=== PATIENT | male | born 1965 | race Caucasian/White ===

== ENCOUNTER 2021-08-17 19:51 | Emergency (ER) | payer MEDICARE, MEDICAID, SELFPAY ==
--- NOTE | 2021-08-17 20:03 | ED.ALCOHOL ---
HPI - Alcohol General Stated Complaint: ETOH Time Seen by Provider: 08/17/21 20:03 Source: patient and EMS Mode of arrival: EMS Limitations: no limitations History of Present Illness HPI narrative: 56-year-old male came in by ambulance after [address] trunk. Patient admitted to drinking plenty of alcohol last night, patient was found in the street by EMS and brought to the emergency department, patient stated that he is not homeless, patient declined SI/HI/hallucination. Review of Systems Review of Systems: All other systems are reviewed and are negative Constitutional: Reports as per HPI and Reports no additional constitutional complaints Eyes: Reports as per HPI and Reports no additional eye complaints Reports system reviewed and no additional complaints, except as documented Cardiovascular: Reports as per HPI and Reports no additional cardiovascular complaints Respiratory: Reports as per HPI and Reports no additional respiratory complaints Gastrointestinal: Reports as per HPI and Reports no additional gastrointestinal complaints Genitourinary: Reports no additional female genitourinary complaints Musculoskeletal: Reports no additional musculoskeletal complaints Skin/Breast: Reports system reviewed and no additional complaints, except as docu Psychiatric: Reports no additional psychiatric complaints Endocrine: Reports no additional endocrine complaints Hematologic/Lymphatic: Reports no additional hematologic/lymphatic complaints Allergic/Immunologic: Reports no additional allergic/immunologic complaints Reports system reviewed and no additional complaints, except as documented and Reports Abnormal speech present Physical Exam Vital Signs: Vital Signs: Vital signs have been reviewed as appeared to be correct. Blood pressure normal. Heart rate normal. Respiration rate normal. Temperature normal. Oxygen saturation normal. Appearance: Alert. Oriented X3. No acute distress. Disheveled Head: Normal external exam. Normocephalic. Atraumatic. No Collins signs noted. No raccoon eyes noted Eyes: PERRLA. EOMI. Conjunctiva and sclera normal. Eyelids normal. ENT: TM's Normal. Pharynx normal. Uvula midline. Moist mucous membranes. No trismus noted. No drooling noted. No muffled voice noted. Neck: Normal inspection. Neck supple. FROM. No adenopathy. Thyroid Normal. No meningeal signs. No neck mass noted. CVS: Normal heart rate and rhythm. Heart sound normal. No murmurs noted. Pulses normal throughout. Respiratory: No respiratory distress. Painless inspiration. Breath sounds normal. No wheezes/rales/rhonchi noted. Chest nontender. No accessory muscle usage noted or decreased air movement noted. Abdomen: Soft and nontender. Bowel sounds normal in all 4 quadrants. No distention noted. No organomegaly noted. No visible injury noted. Back: No CVA tenderness. Full range of motion noted. Skin: Skin warm and dry. Normal skin color. Normal skin turgor. No rashes/lesions/lacerations noted. Extremities: No lower extremity edema. Extremities exhibit normal range of motion. Extremities nontender. Neuro: Oriented X 3. Cranial nerve exam: II-XII are grossly intact No motor deficit. No sensory deficit. Reflexes normal. Course Course Course Narrative: Assessment and plan. 56-year-old male came in drunk limited exam in evaluation due to a total severe intoxication, will re-evaluate when patient is more sober. Discharge Plan Discharge Clinical Impression: Alcohol intoxication Instructions: Abuse of Alcohol (ED)
[2021-08-17 20:06] VITALS: BP 128/71; PULSE 99; RESP 16; O2SAT 100; BMI 26.9
[2021-08-17 22:00] VITALS: RESP 16
--- NOTE | 2021-08-17 22:00 | PC.NURSE ---
THIS NURSE ASSISTED PT TO BATHROOM. GAIT STEADY. NO C/O SOB, CHEST PAIN OR HEADACHE WHILE AMBULATING. NO MUSCLE TREMORS NOTED AT THIS TIME. PT BACK IN RECLINER IN 22 FER[address]. FRESH WARM BLANKET GIVEN TO PT. AWARE.
--- NOTE | 2021-08-17 23:47 | PC.NURSE ---
PT SLEEPING COMFORTABLY IN 22 [address]. NO DISTRESS NOTED AT THIS TIME. RESPIRATIONS EVEN AND UNLABORED. NO SWEATING, MUSCLE TREMORS OR AGITATION NOTED. MD WRIGHT
== END 2021-08-18 02:10 | disposition home or self-care (01) ==
PROVIDERS: Emergency Provider Emergency Medicine
DX: F10.120 Alcohol abuse with intoxication, uncomplicated (principal); Y90.9 Presence of alcohol in blood, level not specified; F43.29 Adjustment disorder with other symptoms; F32.A Depression, unspecified; F17.200 Nicotine dependence, unspecified, uncomplicated
CPT/HCPCS: 99284

== ENCOUNTER 2021-08-28 11:03 | Inpatient (IN) | payer MEDICARE, MEDICAID, SELFPAY ==
[2021-08-28 11:40] VITALS: BP 171/109; PULSE 100; RESP 16; TEMP 37.5; O2SAT 96; BMI 28.4
[2021-08-28 12:11] LABS: Basophils Percent Auto 0.2 % (0-2); Eosinophils Percent Auto 0.5 % (0-4); Hematocrit 39.1 % (42.0-52.0); Hemoglobin 13.6 g/dl (14.0-18.0); Imm Gran Abs Auto 0.02 X10*3/uL (0.00-0.03); Imm Gran Pct Auto 0.4 % (0.0-0.4); Lymphocytes Absolute Auto 0.7 X10*3/uL (1.2-4.9); MANUAL DIFF FLAG SCAN; Mean Corpuscular HGB Conc 34.8 g/dl (31.0-36.0); Mean Corpuscular Hemoglobin 34.4 pg (27.0-33.0); Monocytes Absolute Auto 0.3 X10*3/uL (0.1-1.2); Monocytes Percent Auto 5.1 % (2-11); Neutrophils Absolute Auto 4.5 x10*3/uL (2.0-8.3); Neutrophils Percent Auto 81.8 % (45-73); PLT CLUMP 1; Red Blood Count 3.95 X10*6/uL (4.60-5.80); SCAN SMEAR FLAG 1
[2021-08-28 12:20] LABS: Ethanol 45 mg/dL
[2021-08-28 12:23] LABS: Alanine Aminotransferase 41 U/L (0-40); Alkaline Phosphatase 75 U/L (39-117); Anion Gap 15 (12-20); Aspartate Amino Transferase 60 U/L (5-37); Bilirubin Total 0.8 mg/dL (0.0-1.0); Blood Urea Nitrogen 10 mg/dL (9-16); Calcium 8.8 mg/dL (8.4-10.2); Carbon Dioxide 24 mmol/L (22-29); Chloride 106 mmol/L (96-108); Creatinine Clr Calc Pharmacy 126.7; Estimated Glomerular Filt Rate > 60; Glucose Random 128 mg/dL (60-115); Lipase 8 U/L (8-78); Potassium 3.5 mmol/L (3.3-5.1); Sodium 141 mmol/L (135-145); Total Protein 6.9 g/dL (6.5-8.0)
[2021-08-28 12:29] LABS: Platelet Count 64 X10*3/uL (160-400); White Blood Count 5.5 X10*3/uL (4.8-10.8)
[2021-08-28 12:30] LABS: COVID-19 Test Negative (Negative)
[2021-08-28 12:30] LABS: SLIDE REVIEW VERIFIED
[2021-08-28 12:42] VITALS: BP 171/109; PULSE 100
[2021-08-28] MEDS: Acetaminophen 325 MG TABLET 975 MG PO (12:42)
[2021-08-28] MEDS: cloNIDine HCL 0.1 MG TABLET PO (12:42)
[2021-08-28] MEDS: LORazepam 1 MG TABLET PO (12:42)
[2021-08-28 13:15] LABS: Appearance Urine CLEAR; Color Urine YELLOW; Glucose Urine UA NEG (NEG); Leukocyte Esterase Urine NEG (NEG); Nitrite Urine NEG (NEG); PH 6.5 (5.0-8.0); Urine Blood NEG (NEG); Urine Ketones NEG (NEG); Urine Protein NEG (NEG-TRACE)
[2021-08-28 13:46] LABS: RBC Urine 0 /HPF (0); Sperm Urine NOTED; WBC Urine 0-2 /HPF (0-4)
[2021-08-28 13:51] VITALS: BP 129/59; PULSE 104; RESP 16; TEMP 37.1; O2SAT 97
[2021-08-28] MEDS: LORazepam 1 MG TABLET 2 MG PO ×2 (14:22→16:10)
--- NOTE | 2021-08-28 15:23 | ED.PSYCH ---
HPI - Psych General Chief Complaint: Psychiatric Symptoms Stated Complaint: Crisis Time Seen by Provider: 08/28/21 11:27 Source: patient Mode of arrival: ambulatory Limitations: no limitations History of Present Illness HPI Narrative: 56-year-old male who presents emergency department for evaluation of suicidal ideation, depression and requesting evaluation for alcohol detox. Patient states that he is homeless. He states that he is very depressed and has been thinking of killing himself. He states he just does not want to live anymore. He does not have a specific plan. He denies being homicidal. Patient states that he is drinking 6-8 nips of whiskey per day. His last drink was this morning at around 8:00 a.m.. He denied fever, chills, chest pain, shortness of breath, nausea, vomiting, abdominal pain, changes bowel movements, change in his urine. Related Data Previous Rx's Medication Instructions Recorded furosemide 20 mg tablet 20 mg PO DAILY #3 tab 09/02/21 Allergies Allergy/AdvReac Type Severity Reaction Status Date / Time No Known Allergies Allergy Verified 08/31/21 20:16 Review of Systems Review of Systems: Yes all other systems are reviewed and are negative [facility] Past Medical History [facility] Narrative: Past medical history: Diabetes mellitus, diabetic neuropathy. Past surgical history: None. Social history: He smokes 2 packs of cigarettes per day times 25 years. He drinks 6-8 nips of whiskey per day. He denies drug use. Social History Social History Household Members: None Housing: Homeless Do you presently have visiting nurse or other home services: No Alcohol intake: current Patient Tobacco Use Status: Current everyday Tobacco user Tobacco use type: Cigarette Cigarette Packs Per Day: 1 Cigarettes Per Day: 20.0 e-Cigarette/Vaping Use: Never Used Advance Directives: No Advance Directives Information Provided: No service: No Sexual orientation: Did not discuss. Physical Exam Vital Signs: Vital Signs: Last Vital Signs Temp 98.5 F 08/30/21 09:56 Pulse 84 08/30/21 09:56 Resp 18 08/30/21 09:56 BP 161/95 H 08/30/21 09:56 Pulse Ox 98 08/30/21 09:56 Body Mass Index 28.4 Const: Other: Awake, alert, male, disheveled but very pleasant and cooperative, the patient's face is very erythematous but not warm to the touch, he is tremulous, he answers all questions appropriately HENMT: Head: Yes normal to inspection, Yes normocephalic and Yes atraumatic Ears: external ears normal General nose exam: Normal external nose present Face and sinus: Yes normal facial exam Mouth: Normal oral and palatal mucosa present Throat: Yes posterior oropharynx normal Eyes: General: appearance normal, both eyes and all related structures Pupils: Equal, round and reactive pupils present Neck: Neck: Yes normal visual inspection, Yes no lymphadenopathy, Yes trachea midline and Yes supple Chest: Chest palpation & inspection: normal inspection of the chest and normal palpation of entire chest wall Resp: Effort & Inspection: normal respiratory effort and able to speak in complete sentences Auscultation: clear to auscultation bilaterally Cardio: Rate: tachycardic Rhythm: regular rhythm Heart sounds: S1 normal heart sound present, S2 normal heart sound present and no murmurs GI: Inspection: Yes normal to inspection Palpation (GI): Soft to palpation, nontender and no guarding Auscultation: normal bowel sounds : General: Yes no CVA tenderness Back/Spine/Pelvis: Back: no CVA tenderness Skin: General skin exam: no rashes or lesions noted Neuro: Other: Tremulous Cranial nerves: Yes CN's II-XII intact bilaterally and Yes Equal, round and reactive pupils present Cognition (Neuro): normal cognition Motor exam (neuro): 5/5 motor strength present throughout Extrem: General: Yes normal to inspection Psych: Appearance: grossly normal Speech and movement: Normal speech and movement present Affect: Sad affect present Attitude: cooperative Thought process: Normal thought process present Thought content: Normal thought content present Course Course Course Narrative: 56-year-old male who presents emergency department for evaluation of depression with suicidal ideation, alcohol use disorder requesting psychiatric evaluation evaluation for detox. Vital signs revealed hypertension with a blood pressure of 171/109 and tachycardia with a pulse of 100 otherwise unremarkable. Patient's exam did reveal that he was tremulous I suspect that he may be withdrawing from alcohol otherwise exam was unremarkable. I ordered a laboratory evaluation to include CBC, CMP, urinalysis, urine tox screen, alcohol level, COVID-19. Patient's alcohol withdrawal was treated with lorazepam 1 mg orally 0.1 mg orally and Tylenol 975 mg orally. 1528: Laboratory evaluation: CBC was unremarkable [place] [address] which is related to his alcohol use disorder. Comprehensive metabolic panel revealed an elevated glucose of 128, the patient does have diabetes . AST and ALT are elevated at 4:41 p.m. consistent with his alcohol use disorder. Urinalysis was negative. Blood alcohol level was 45, urine tox screen is pending. COVID-19 was negati Patient required a 2nd dose of Ativan 2 mg orally for his withdrawal with good effect, patient is resting comfortably. Patient is medically cleared for evaluation by [facility]. 1725: Physician observation started at 1725. Patient placed in physician observation because the patient needed more time Behavioral Health evaluated for the need for psych admission and management alcohol withdrawal At the time observation was started the patient's vitals were stable, patient resting comfortably, Neuro: nonfocal, CV RRR, Lungs clear. Patient's care was turned over to my colleague, Dr. Bessy Denson. 08/29/2021 0721: Physician observation continued: According to nursing, the patient received Librium overnight for alcohol withdrawal symptoms. This morning the patient is awake and alert, oriented to person and place. He states that he is still feeling depressed. He does appear to be tremulous. Neurologic exam was nonfocal, lungs were clear, heart tachycardia with a normal S1-S2 abdomen was soft and nontender. The patient will be started on Librium 50 mg 4 times a day. Patient is still waiting for behavioral health evaluation therefore physician observation will be continued. 1046: Physician observation continued: Patient has been evaluated by Behavioral Health and the patient wasa Section 12 secondary to suicidal ideation. He tell the behavior health counselor that that he would throw himself into a river if he left the emergency department. The patient will be kept in physician observation until an appropriate inpatient bed can be found. MDM - Psych Lab Data Result diagrams: 08/28/21 11:51 08/28/21 11:51 Labs: Lab Results 08/28/21 08/28/21 08/28/21 Range/Units 11:50 11:51 11:51 WBC 5.5 (4.8-10.8) X10*3/uL RBC 3.95 L (4.60-5.80) X10*6/uL Hgb 13.6 L (14.0-18.0) g/dl Hct 39.1 L (42.0-52.0) % MCV 99.0 H (80.0-98.0) fL MCH 34.4 H (27.0-33.0) pg MCHC 34.8 (31.0-36.0) g/dl RDW 15.0 (11.0-16.0) % Plt Count 64 L (160-400) X10*3/uL MPV Not Reportable Immature Gran % (Auto) 0.4 (0.0-0.4) % Neut % (Auto) 81.8 H (45-73) % Lymph % (Auto) 12.0 L (20-40) % Morrill % (Auto) 5.1 (2-11) % Eos % (Auto) 0.5 (0-4) % Baso % (Auto) 0.2 (0-2) % Lymph # (Auto) 0.7 L (1.2-4.9) X10*3/uL Morrill # (Auto) 0.3 (0.1-1.2) X10*3/uL Eos # (Auto) 0.0 (0.0-0.4) X10*3/uL Baso # (Auto) 0.0 (0.0-0.2) X10*3/uL Abs Immat Gran (auto) 0.02 (0.00-0.03) X10*3/uL Absolute Neuts (auto) 4.5 (2.0-8.3) x10*3/uL Absolute Nucleated RBC 0.000 (0.0-0.012) X10*3/uL Nucleated RBC % (auto) 0.0 (0.0-0.2) /100WBC Smear Tech's Comments VERIFIED Sodium 141 (135-145) mmol/L Potassium 3.5 (3.3-5.1) mmol/L Chloride 106 (96-108) mmol/L Carbon Dioxide 24 (22-29) mmol/L Anion Gap 15 (12-20) BUN 10 (9-16) mg/dL Creatinine 0.76 (0.5-1.4) mg/dL Estim Creat Clear Calc 126.7 Estimated GFR > 60 Random Glucose 128 H (60-115) mg/dL Calcium 8.8 (8.4-10.2) mg/dL Total Bilirubin 0.8 (0.0-1.0) mg/dL AST 60 H (5-37) U/L ALT 41 H (0-40) U/L Alkaline Phosphatase 75 (39-117) U/L Total Protein 6.9 (6.5-8.0) g/dL Albumin 4.0 (3.5-5.0) g/dL Lipase 8 (8-78) U/L Urine Color Urine Appearance Urine pH (5.0-8.0) Ur Specific [place] (1.005-1.025) Urine Protein (NEG-TRACE) MG/DL Urine Glucose (UA) (NEG) MG/DL Urine Ketones (NEG) MG/DL Urine Blood (NEG) Urine Nitrite (NEG) Ur Leukocyte Esterase (NEG) Urine RBC (0) /HPF Urine WBC (0-4) /HPF Ur Squamous Epith Cells /LPF Urine Bacteria /LPF Urine Sperm Urine Opiates Screen (Not Detect) Urine Fentanyl Screen (Not Detect) Ur Barbiturates Screen (Not Detect) Ur Phencyclidine Scrn (Not Detect) Ur Amphetamines Screen (Not Detect) U Benzodiazepines Scrn (Not Detect) Urine Cocaine Screen (Not Detect) U Marijuana (THC) Screen (Not Detect) Ethyl Alcohol mg/dL COVID-19 (MAISHA) Negative (Negative) COVID-19 Clin Com See Note 08/28/21 08/28/21 08/28/21 Range/Units 11:51 18:12 Unknown WBC (4.8-10.8) X10*3/uL RBC (4.60-5.80) X10*6/uL Hgb (14.0-18.0) g/dl Hct (42.0-52.0) % MCV (80.0-98.0) fL MCH (27.0-33.0) pg MCHC (31.0-36.0) g/dl RDW (11.0-16.0) % Plt Count (160-400) X10*3/uL MPV Immature Gran % (Auto) (0.0-0.4) % Neut % (Auto) (45-73) % Lymph % (Auto) (20-40) % Morrill % (Auto) (2-11) % Eos % (Auto) (0-4) % Baso % (Auto) (0-2) % Lymph # (Auto) (1.2-4.9) X10*3/uL Morrill # (Auto) (0.1-1.2) X10*3/uL Eos # (Auto) (0.0-0.4) X10*3/uL Baso # (Auto) (0.0-0.2) X10*3/uL Abs Immat Gran (auto) (0.00-0.03) X10*3/uL Absolute Neuts (auto) (2.0-8.3) x10*3/uL Absolute Nucleated RBC (0.0-0.012) X10*3/uL Nucleated RBC % (auto) (0.0-0.2) /100WBC Smear Tech's Comments Sodium (135-145) mmol/L Potassium (3.3-5.1) mmol/L Chloride (96-108) mmol/L Carbon Dioxide (22-29) mmol/L Anion Gap (12-20) BUN (9-16) mg/dL Creatinine (0.5-1.4) mg/dL Estim Creat Clear Calc Estimated GFR Random Glucose (60-115) mg/dL Calcium (8.4-10.2) mg/dL Total Bilirubin (0.0-1.0) mg/dL AST (5-37) U/L ALT (0-40) U/L Alkaline Phosphatase (39-117) U/L Total Protein (6.5-8.0) g/dL Albumin (3.5-5.0) g/dL Lipase (8-78) U/L Urine Color YELLOW Urine Appearance CLEAR Urine pH 6.5 (5.0-8.0) Ur Specific [place] 1.020 (1.005-1.025) Urine Protein NEG (NEG-TRACE) MG/DL Urine Glucose (UA) NEG (NEG) MG/DL Urine Ketones NEG (NEG) MG/DL Urine Blood NEG (NEG) Urine Nitrite NEG (NEG) Ur Leukocyte Esterase NEG (NEG) Urine RBC 0 (0) /HPF Urine WBC 0-2 (0-4) /HPF Ur Squamous Epith Cells NONE /LPF Urine Bacteria NONE /LPF Urine Sperm NOTED Urine Opiates Screen Not Detected (Not Detect) Urine Fentanyl Screen Not Detected (Not Detect) Ur Barbiturates Screen POSITIVE H (Not Detect) Ur Phencyclidine Scrn Not Detected (Not Detect) Ur Amphetamines Screen Not Detected (Not Detect) U Benzodiazepines Scrn Not Detected (Not Detect) Urine Cocaine Screen Not Detected (Not Detect) U Marijuana (THC) Screen Not Detected (Not Detect) Ethyl Alcohol 45 mg/dL COVID-19 (MAISHA) (Negative) COVID-19 Clin Com Discharge Plan Discharge Clinical Impression: Major depressive disorder Patient Disposition: Admitted As Inpatient Interventions: Admission Worksheet (ED) Last Done: 08/29/21 23:59 Discharge Date/Time: 08/30/21 00:02
[2021-08-28 16:03] VITALS: BP 170/100; PULSE 120; RESP 18; TEMP 37.3; O2SAT 95
--- NOTE | 2021-08-28 16:16 | PHA.MEDREC ---
Pharmacy Consult ? Medication Reconciliation Pharmacy has completed the medication reconciliation. Vicki AlexD
[2021-08-28] MEDS: Nicotine Polacrilex 2 MG GUM BUCCAL (18:05)
[2021-08-28 18:30] VITALS: BP 130/69; PULSE 91; RESP 18; TEMP 37.3; O2SAT 94
[2021-08-28 18:39] LABS: Amphetamine Screen Urine Not Detected (Not Detect); Barbiturates, Urine POSITIVE (Not Detect); Benzodiazepines Screen Urine Not Detected (Not Detect); Cannabinoid Screen Urine Not Detected (Not Detect); Cocaine Screen Urine Not Detected (Not Detect); Fentanyl, urine Not Detected (Not Detect); Opiate Screen Urine Not Detected (Not Detect); Phencyclidine Screen Urine Not Detected (Not Detect)
[2021-08-28 21:26] VITALS: BP 158/93; PULSE 91; TEMP 37.2; O2SAT 93
[2021-08-28] MEDS: chlordiazePOXIDE HCl 5 MG CAPSULE 10 MG PO (21:39)
--- NOTE | 2021-08-29 | ECG_ITS ---
Test Reason : MEDCLEARANCE Blood Pressure : / mmHG Vent. Rate : 071 BPM Atrial Rate : 071 BPM P-R Int : 144 ms QRS Dur : 102 ms QT Int : 400 ms P-R-T Axes : 048 048 055 degrees QTc Int : 434 ms Normal sinus rhythm Early repolarization Intra-ventricular conduction delay Borderline ECG No previous ECGs available Referred By: Hemant Muniz Electronically Signed By:JENNY ARROYO MD
[2021-08-29 02:12] VITALS: BP 177/103; PULSE 89; RESP 17; TEMP 36.8; O2SAT 96
[2021-08-29] MEDS: chlordiazePOXIDE HCl 5 MG CAPSULE 25 MG PO (02:31)
[2021-08-29] MEDS: Nicotine Polacrilex 2 MG GUM BUCCAL ×5 (02:32→20:55)
--- NOTE | 2021-08-29 02:37 | PC.NURSE ---
Patient is currently in bed resting, watching TV, patient scored 11 on CIWA at 8 received Librium 10 mg, patient scored 12 on CIWA @ 0215 received Librium 25 mg, patient had x 2 episode of functional incontinence of both bowel and bladder, patient BP was 177/103, HR 89 at 0210, provider made aware, will continue to monitor.
--- NOTE | 2021-08-29 06:18 | PC.NURSE ---
Patient is currently appears sleeping, asymptomatic of withdrawal at this time, behavior appropriate, medication compliant, N was not able assess the patient, Patient will be reevaluated in the morning, will continue to monitor.
[2021-08-29 07:10] VITALS: BP 162/102; PULSE 92; RESP 16; TEMP 37.9; O2SAT 93
[2021-08-29] MEDS: Acetaminophen 325 MG TABLET 975 MG PO (07:24)
[2021-08-29] MEDS: chlordiazePOXIDE HCl 5 MG CAPSULE 50 MG PO (07:24)
--- NOTE | 2021-08-29 07:27 | PC.NURSE ---
PT HAVING DIARRHEA. ALSO C/O SHAKING. SHOWERING AT PRESENT.
--- NOTE | 2021-08-29 09:26 | PC.NURSE ---
ZACKERY SPOKE WITH PT. AWAITING DISPO
[2021-08-29 10:21] VITALS: TEMP 37.1
--- NOTE | 2021-08-29 10:57 | PC.NURSE ---
PT TO GO TO [facility] LATER TODAY. WAS SPEAKING TO BROTHER ON THE PHONE, YELLING ABOUT WANTING TO . STATES HE HAD BEEN HOMELESS FOR 6 MONTHS.
[2021-08-29] MEDS: chlordiazePOXIDE HCl 25 MG CAPSULE 50 MG PO ×3 (12:37→20:25)
--- NOTE | 2021-08-29 14:12 | PC.NURSE ---
PT ASKED FOR [employer] CARD TO CALL [employer]. REFUSED TO HAVE IT RETURNED TO [facility]
--- NOTE | 2021-08-29 15:02 | PC.NURSE ---
PT AGREED TO HAVE BANK CARD LOCKED UP
[2021-08-29 16:06] VITALS: BP 172/95; PULSE 82; RESP 20; TEMP 36.7; O2SAT 97
[2021-08-29 17:01] VITALS: BP 139/80; PULSE 93; RESP 18; TEMP 36.8; O2SAT 95
--- NOTE | 2021-08-29 17:04 | PC.NURSE ---
Pt alert and oriented x4, calm and cooperative. Pt denies pain. Pt eating and drinking without difficulties, denies N/V. Pt CIWA assessed at 1700, score is 5. Mild tremors noted. Ambulating without issues. Pt resting in recliner watching TV at this time. Report given to URSULA Le.
[2021-08-30 00:06] VITALS: BP 147/89; PULSE 75; TEMP 36.6; O2SAT 95
[2021-08-30] MEDS: clonazePAM 1 MG TABLET PO (01:26)
[2021-08-30] MEDS: chlordiazePOXIDE HCl 25 MG CAPSULE 50 MG PO ×2 (01:30→08:01)
[2021-08-30 01:33] VITALS: BP 182/118; PULSE 86
--- NOTE | 2021-08-30 04:13 | PC.ADMIT ---
Pt is a 56 year old male admitted to the unit after referral from [facility] [place] [facility] Arrived on unit at 2355 and placed on 5 minute safety checks per unit policy. Legal status: CV. Medical issues: HTN, subclinical hypothyroidism and peripheral neuropathy. Substance use: Pt reports daily alcohol use, 6 nips of whiskey, with his last drink being approx. 1116. [facility] crisis history also notes a history of crack cocaine abuse. Records also mention pt's ex- reporting that he was prescribed benzos for sleep, however he would run out of medication before being due for refills, but stating that this was not due to him abusing them, but rather him trying to be able to sleep. Pt has attended AA in the past. Pt reportedly had one previous detox admission in 2012 in [place], and he reports recently being section 35'ed from March-2020 for 89 days . Per crisis eval he did have a period of sobriety from [id number]. Legal issues: Pt does have an extensive legal history, refer to crisis eval. He reported being arrested approx. 2 months ago for being drunk and disorderly , and was scheduled to appear in court , but did not attend; he believes now he may have an open warrant. When asked why he was arrested he referred to buying a $1200 bike at a store in [place], and when he left the store the police were there and arrested him and the bike was placed back in the display window. He referred to possibly having an open container. Per pt's previous therapist pt does not present aggressive or violent, and historically his arrests are secondary to symptoms of sonu. Precipitant: Pt states that for the past 10 years he has been arrested 90 days out of the year on a section 12 . He reports being picked up on 04/02/21 on a section 35 and brought to the rehab/detox program at [facility] for 89 days , and was released on 07/03/21. He reports being homeless and living on the streets since this time as his electricity was reportedly shut off when he was released from the program. Pt is unable to state who calls the police or files the section 12/35 or for what reason, he states they just come pick me up . He reports feeling depressed and anxious, drinking daily to calm his nerves . Pt states I'd rather be , if this is what my life is going to be like , denies active plan or intent, though per the crisis assessment pt stated if he didn't get help he would throw himself in the river . He reports poor sleep at night due to living on the streets, appetite is ok , better now that I'm here . Pt reported one history of being restrained because they wanted to ; he states that in 2014 he was arrested after attending AA at [facility] and was sent to [facility] . At the time of admission assessment pt presents as slightly anxious, somewhat hyperverbal with tangential thought process and disorganized, rambling speech. Pt needed redirection back to topic being discussed. He denies SI or HI, denies hallucinations, does not appear to be responding to internal stimuli. Pt appears to be a poor historian as he cannot give logical explanations for any recent events. He is hoping to be reconnected with providers, stating that due to some financial issues he was unable to see his outpatient providers for a year, but will be able to schedule appointments with them after 09/18/21. Pt denies being on any current medications. Nurse to nurse completed prior to admission. Treatment plan initiated. Dr. Pride notified of admmission and orders obtained. Pt placed on 15 minute safety checks, verbalized understanding and agreement to seek out staff if necessary.
[2021-08-30 08:00] VITALS: BP 135/77; PULSE 84; RESP 18; TEMP 36.8; O2SAT 98
[2021-08-30] MEDS: Multivitamin TABLET 1 TAB PO (08:00)
[2021-08-30] MEDS: Thiamine HCL 100 MG TABLET PO (08:01)
[2021-08-30] MEDS: Folic Acid 1 MG TABLET PO (08:01)
[2021-08-30] MEDS: Acetaminophen 325 MG TABLET 650 MG PO (08:09)
[2021-08-30 09:56] VITALS: BP 161/95; PULSE 84; RESP 18; TEMP 36.9; O2SAT 98
--- NOTE | 2021-08-30 12:03 | PC.NURSE ---
Catalino is discharging at this time. He denies ideation, plan or intent to harm self or others. He is denying signs of withdrawal at present although he scored 10 on CIWA at 8am. He declined librium prn at 10am when elevated BP was noted and CIWA was still a 3. He denies current physical complaint.
--- NOTE | 2021-08-30 13:51 | P.DS_ITS ---
DS: Providers Provider Date of Service: 08/30/21 Date of admission: 08/29/21 19:05 Primary care physician: Unknown Physician DS: Diagnosis Discharge Diagnosis (1) Alcohol abuse: Status: Acute DS: Medications Discharge Medications Home Medications: Home Medications Medication Instructions Recorded Confirmed No Known Home Meds 08/28/21 08/30/21 Mental Status Exam Mental Status Exam Narrative: disheveled, minimally cooperative. irritable, angry, verbally aggressive. denies SI/HI/AVH. demanding discharge. some PMA of pacing, agitated movements. speech incr in rate and amount and loudness. decr in latency. thoughts linear and logical. affect hyper-intense and moderately labile. Data Data Completed and Pending Completed studies during hospitalization [Text1]: 08/28/21 08/28/21 08/28/21 11:50 11:51 11:51 WBC 5.5 RBC 3.95 L Hgb 13.6 L Hct 39.1 L MCV 99.0 H MCH 34.4 H MCHC 34.8 RDW 15.0 Plt Count 64 L MPV Not Reportable Immature Gran % (Auto) 0.4 Neut % (Auto) 81.8 H Lymph % (Auto) 12.0 L [place] % (Auto) 5.1 Eos % (Auto) 0.5 Baso % (Auto) 0.2 Lymph # (Auto) 0.7 L [place] # (Auto) 0.3 Eos # (Auto) 0.0 Baso # (Auto) 0.0 Abs Immat Gran (auto) 0.02 Absolute Neuts (auto) 4.5 Absolute Nucleated RBC 0.000 Nucleated RBC % (auto) 0.0 Smear Tech's Comments VERIFIED Sodium 141 Potassium 3.5 Chloride 106 Carbon Dioxide 24 Anion Gap 15 BUN 10 Creatinine 0.76 Estim Creat Clear Calc 126.7 Estimated GFR > 60 Random Glucose 128 H Calcium 8.8 Total Bilirubin 0.8 AST 60 H ALT 41 H Alkaline Phosphatase 75 Total Protein 6.9 Albumin 4.0 Lipase 8 Urine Color Urine Appearance Urine pH Ur Specific [place] Urine Protein Urine Glucose (UA) Urine Ketones Urine Blood Urine Nitrite Ur Leukocyte Esterase Urine RBC Urine WBC Ur Squamous Epith Cells Urine Bacteria Urine Sperm Urine Opiates Screen Urine Fentanyl Screen Ur Barbiturates Screen Ur Phencyclidine Scrn Ur Amphetamines Screen U Benzodiazepines Scrn Urine Cocaine Screen U Marijuana (THC) Screen Ethyl Alcohol COVID-19 ([facility]) Negative COVID-19 Clin Com See Note 08/28/21 08/28/21 08/28/21 11:51 18:12 Unknown WBC RBC Hgb Hct MCV MCH MCHC RDW Plt Count MPV Immature Gran % (Auto) Neut % (Auto) Lymph % (Auto) [place] % (Auto) Eos % (Auto) Baso % (Auto) Lymph # (Auto) [place] # (Auto) Eos # (Auto) Baso # (Auto) Abs Immat Gran (auto) Absolute Neuts (auto) Absolute Nucleated RBC Nucleated RBC % (auto) Smear Tech's Comments Sodium Potassium Chloride Carbon Dioxide Anion Gap BUN Creatinine Estim Creat Clear Calc Estimated GFR Random Glucose Calcium Total Bilirubin AST ALT Alkaline Phosphatase Total Protein Albumin Lipase Urine Color YELLOW Urine Appearance CLEAR Urine pH 6.5 Ur Specific [place] 1.020 Urine Protein NEG Urine Glucose (UA) NEG Urine Ketones NEG Urine Blood NEG Urine Nitrite NEG Ur Leukocyte Esterase NEG Urine RBC 0 Urine WBC 0-2 Ur Squamous Epith Cells NONE Urine Bacteria NONE Urine Sperm NOTED Urine Opiates Screen Not Detected Urine Fentanyl Screen Not Detected Ur Barbiturates Screen POSITIVE H Ur Phencyclidine Scrn Not Detected Ur Amphetamines Screen Not Detected U Benzodiazepines Scrn Not Detected Urine Cocaine Screen Not Detected U Marijuana (THC) Screen Not Detected Ethyl Alcohol 45 COVID-19 ([facility]) COVID-19 Clin Com DS: Summary Hospital Course Hospital Course: per 08/30 admission note: HPI Narrative: per 08/29 ED note: 56-year-old male who presents emergency department for evaluation of suicidal ideation, depression and requesting evaluation for alcohol detox.? Patient states that he is homeless.? He states that he is very depressed and has been thinking of killing himself.? He states he just does not want to live anymore.? He does not have a specific plan.? He denies being homicidal.? Patient states that he is drinking 6-8 nips of whiskey per day.? His last drink was this morning at around 8:00 a.m..? He denied fever, chills, chest pain, shortness of breath, nausea, vomiting, abdominal pain, changes bowel movements, change in his urine. once on the unit overnight and seen by MD the following day, pt was irritable, angry, felt he had been misled, recanted any SI or interest in substance abuse treatment, and demanded discharge.? he was discharged the same day per his request, appearing to have capacity to make the decision.? he was educated re the risks of unsupervised withdrawal, such as seizure, stroke, [place], fall with head trauma, any of which might result in .? he was accepting of those risks and was discharged the same day. Past Psychiatric History: history of substance use disorders, h/o suicidal statements which appear instrumental to gain admission to the hospital.? no clear diagnosis aside from alcohol and benzo use disorders.? some hosps for SI, some section 35s, no SA, no SIB. Medical Evaluation Reviewed: Yes [facility] Medical History? Adjustment disorder with disturbance of emotion Family History: unknown Social History: homeless, legal troubles Substance History: alcohol use disorder, benzo use disorder.? multiple section 35s. Trauma History: unknown Time Spent with Patient Time attestation: Total time spent providing and/or coordinating discharge services: Discharge Plan Discharge Patient Disposition: Home, Self-Care Discharge Diagnosis: Alcohol Use Disorder, Severe Referrals: Physician,Unknown J [Primary Care Provider] - 1 Week ([address] [address] [phone] Walk IN hours Friday through Friday 8:30 - 4) Discharge Medications: No Action doxycycline hyclate 100 mg capsule 100 mg PO BID 10 Days Qty: 20 0RF Discharge Orders: Discharge Order (Routine); Ordered 08/30/21 Ordered By: Catalino Pride Diet: advance to usual diet Activity on Discharge: As tolerated Stand Alone Forms: Patient Portal Discharge page, Community Support Care Plan Goals: remain sober in outpatient level of care Health Concerns: chronic alcoholism Plan of Treatment: maintain abstinence from alcohol Assessment: not at imminent risk of harm to self or others. has capacity to sign out AMA, being able to take in and retain information regarding risks of discharge prior to completion of alcohol withdrawal. Discharge Date/Time: 08/30/21 13:00
--- NOTE | 2021-08-30 13:51 | HO.PSYADMNOT ---
HPI Date of Service: 08/30/21 Chief Complaint: Crisis HPI Narrative: per 08/29 ED note: 56-year-old male who presents emergency department for evaluation of suicidal ideation, depression and requesting evaluation for alcohol detox.? Patient states that he is homeless.? He states that he is very depressed and has been thinking of killing himself.? He states he just does not want to live anymore.? He does not have a specific plan.? He denies being homicidal.? Patient states that he is drinking 6-8 nips of whiskey per day.? His last drink was this morning at around 8:00 a.m..? He denied fever, chills, chest pain, shortness of breath, nausea, vomiting, abdominal pain, changes bowel movements, change in his urine. once on the unit overnight and seen by MD the following day, pt was irritable, angry, felt he had been misled, recanted any SI or interest in substance abuse treatment, and demanded discharge. he was discharged the same day per his request, appearing to have capacity to make the decision. he was educated re the risks of unsupervised withdrawal, such as seizure, stroke, [place], fall with head trauma, any of which might result in . he was accepting of those risks and was discharged the same day. Past Psychiatric History: history of substance use disorders, h/o suicidal statements which appear instrumental to gain admission to the hospital. no clear diagnosis aside from alcohol and benzo use disorders. some hosps for SI, some section 35s, no SA, no SIB. Medical Evaluation Reviewed: Yes [facility] Medical History Adjustment disorder with disturbance of emotion Family History: unknown Social History: homeless, legal troubles Substance History: alcohol use disorder, benzo use disorder. multiple section 35s. Trauma History: unknown Diagnostics Vital Signs (24Hr): Vital Signs - 24 hr 08/29/21 16:06 08/29/21 17:01 08/30/21 00:06 Temperature 98.1 F 98.3 F 97.8 F Pulse Rate 82 93 75 Respiratory Rate 20 18 Blood Pressure 172/95 H 139/80 147/89 H Pulse Oximetry 97 95 95 08/30/21 01:33 08/30/21 08:00 08/30/21 09:56 Temperature 98.3 F 98.5 F Pulse Rate 86 84 84 Respiratory Rate 18 18 Blood Pressure 182/118 H 135/77 161/95 H Pulse Oximetry 98 98 Body Mass Index 28.4 Labs Results: 08/28/21 11:51 08/28/21 11:51 Labs: Laboratory Results - last 48 hr 08/28/21 18:12 Urine Opiates Screen Not Detected Urine Fentanyl Screen Not Detected Ur Barbiturates Screen POSITIVE H Ur Phencyclidine Scrn Not Detected Ur Amphetamines Screen Not Detected U Benzodiazepines Scrn Not Detected Urine Cocaine Screen Not Detected U Marijuana (THC) Screen Not Detected Meds/Allergies Allergies Allergies Allergy/AdvReac Type Severity Reaction Status Date / Time No Known Allergies Allergy Verified 08/31/21 20:16 Mental Status Exam Mental Status Exam Narrative: disheveled, minimally cooperative. irritable, angry, verbally aggressive. denies SI/HI/AVH. demanding discharge. some PMA of pacing, agitated movements. speech incr in rate and amount and loudness. decr in latency. thoughts linear and logical. affect hyper-intense and moderately labile. Assessment & Plan Assessment & Plan (1) Alcohol abuse: Status: Acute Code(s): F10.10 - Alcohol abuse, uncomplicated Assessment and Plan: pt declining treatment, appears to have capacity. Plan discharge, per pt request. Reason for continued inpatient stay Substantial Risk for: other
== END 2021-08-30 13:00 | disposition home or self-care (01) | DRG 897 ==
LOC: HO.ED 08-29 10:05 → HO.PADLT16 08-29 19:06
PROVIDERS: Admitting Provider Psychiatry & Neurology Psychiatry; Emergency Provider Emergency Medicine Emergency Medical Services; Visit Provider Psychiatry & Neurology Psychiatry
DX: F10.239 Alcohol dependence with withdrawal, unspecified (principal); R45.851 Suicidal ideations; Z20.822 Contact with and (suspected) exposure to COVID-19; F17.210 Nicotine dependence, cigarettes, uncomplicated; Z71.6 Tobacco abuse counseling
CPT/HCPCS: 36415; 80053; 80307; 81001; 82077; 83690; 85025; 87635; 93005; 99285

== ENCOUNTER 2021-08-31 19:29 | Emergency (ER) | payer MEDICARE, MEDICAID, SELFPAY ==
--- NOTE | 2021-08-31 19:43 | ED.PSYCH ---
HPI - Psych General Chief Complaint: Psychiatric Symptoms Stated Complaint: etoh/SI Time Seen by Provider: 08/31/21 19:39 Source: patient, RN notes reviewed and old records reviewed Mode of arrival: EMS Limitations: altered mental status History of Present Illness HPI Narrative: 56 y/o male with history of depression, alcohol abuse, who was recently seen here for suicidal ideation (08/28-08/30) presents back to the ER for ongoing depression, suicidal thoughts as well as weakness. He walk to the [facility] that was about a mile from his house so that he can have someone to call 911 for him. He admits to drinking alcohol today, 1 nap. Previously he admitted to drinking 6-8 episode with keep per day. He reports ongoing depression and not wanting to live anymore. He does not have a specific plan on how he is going to harm himself. He denies any drug use. He lives home alone. He states he does not have any food in his Fridge. He has a brother that tries to help care for him. MD complaint: suicidal ideation, feels depressed, substance abuse and alcohol abuse Onset (ago): unknown Duration: constant History of same: Yes Relieving factors: none Exacerbating factors: alcohol Context: recent alcohol abuse Associated psychiatric symptoms: depression and suicidal ideation Associated symptoms: insomnia and other (weakness) Treatments prior to arrival: none If self harm: admits thoughts of self harm Related Data Home Medications Medication Instructions Recorded Confirmed No Known Home Meds 08/28/21 08/30/21 Allergies Allergy/AdvReac Type Severity Reaction Status Date / Time No Known Allergies Allergy Verified 08/31/21 20:16 Review of Systems Review of Systems: Constitutional: No Fever, No Chills ENT/Mouth: No sore throat, No Rhinorrhea, No Swallowing Difficulty Cardiovascular: No Chest Pain, No SOB, No Orthopnea, No Edema Respiratory: No Cough, No Sputum, No Wheezing, No dyspnea Gastrointestinal: No Nausea, No Vomiting, No Diarrhea, No abdominal Pain Genitourinary: No Dysuria, No Urinary Frequency, No Hematuria Musculoskeletal: No joint pain, No Myalgias Skin: No Skin Lesions, No rash Neuro: + Weakness, No Numbness, No Dizziness, + Headache Psych: + Anxiety/Panic, + Depression, +SI, No HI, No AH/VH Heme/Lymph: No Bruising, No Lymphadenopathy Endocrine: No Polyuria, No Polydipsia PMFSH Social History Social History Household Members: None Housing: Homeless Do you presently have visiting nurse or other home services: No Patient Tobacco Use Status: Current everyday Tobacco user Tobacco use type: Cigarette Cigarette Packs Per Day: 1 Cigarettes Per Day: 20.0 e-Cigarette/Vaping Use: Never Used Advance Directives: No Advance Directives Information Provided: No service: No Sexual orientation: Did not discuss. Physical Exam Vital Signs: Vital Signs: Last Vital Signs Temp 98.6 F 08/31/21 20:09 Pulse 106 H 08/31/21 20:09 Resp 16 08/31/21 20:09 BP 103/61 08/31/21 20:09 Pulse Ox 97 08/31/21 20:09 Body Mass Index 25.7 Appearance: Alert. Oriented X3. Disheveled and unkempt. Smells of alcohol. Eyes: Pupils equal, round and reactive to light. ENT: Pharynx normal. Neck: Normal inspection. Neck supple. CVS: Normal heart rate and rhythm. Pulses normal. Respiratory: No respiratory distress. Breath sounds normal. Abdomen: Soft and nontender. +BS x4 Skin: Skin warm and dry. Normal skin color. Normal skin turgor. No rashes. Extremities: No lower extremity edema. Atraumatic x4. Neuro: Oriented X 3. No motor deficit. No sensory deficit. Slow but steady gait. Course Course Course Narrative: 56-year-old male with a history of depression, suicidal ideation alcohol abuse presents to the ER for evaluation of depression and alcohol intoxication. He admits to ongoing suicidal ideation. Upon review of records it looks like he was briefly inpatient here from August 28 and discharged by Psychiatry yesterday. He presents back immediately with ongoing symptoms. Will check an alcohol basic labs, U tox and have crisis team re-evaluate him. Reevaluation(s) Reevaluation #1: Signed out to the night provider who will follow-up lab workup in [facility] evaluation. Discharge Plan Discharge Clinical Impression: Suicidal ideation Prescriptions: No Action No Known Home Meds RF: 0
[2021-08-31 20:09] VITALS: BP 103/61; PULSE 106; RESP 16; TEMP 37; O2SAT 97; BMI 25.7
--- NOTE | 2021-08-31 20:36 | PC.NURSE ---
technician automated equipment at bedside for labs, urine and Covid swab. Pt ambulating to the bathroom with an unsteady gait with an assist by technician automated equipment.
[2021-08-31 20:49] LABS: MANUAL DIFF FLAG NO
[2021-08-31 20:53] LABS: Basophils Percent Auto 0.2 % (0-2); Eosinophils Absolute Auto 0.2 X10*3/uL (0.0-0.4); Eosinophils Percent Auto 3.2 % (0-4); Hematocrit 41.9 % (42.0-52.0); Hemoglobin 14.3 g/dl (14.0-18.0); Imm Gran Abs Auto 0.02 X10*3/uL (0.00-0.03); Imm Gran Pct Auto 0.4 % (0.0-0.4); Lymphocytes Absolute Auto 0.6 X10*3/uL (1.2-4.9); Lymphocytes Percent Auto 11.5 % (20-40); Mean Corpuscular HGB Conc 34.1 g/dl (31.0-36.0); Mean Corpuscular Hemoglobin 34.6 pg (27.0-33.0); Mean Corpuscular Volume 101.5 fL (80.0-98.0); Mean Platelet Volume 11.6 fL (9.4-12.4); Monocytes Absolute Auto 0.3 X10*3/uL (0.1-1.2); Monocytes Percent Auto 5.4 % (2-11); Neutrophils Absolute Auto 3.9 x10*3/uL (2.0-8.3); Neutrophils Percent Auto 79.3 % (45-73); Red Blood Count 4.13 X10*6/uL (4.60-5.80)
[2021-08-31 20:54] LABS: Platelet Count 75 X10*3/uL (160-400)
[2021-08-31 20:56] LABS: Appearance Urine CLEAR; Color Urine YELLOW; Glucose Urine UA NEG (NEG); Leukocyte Esterase Urine NEG (NEG); Nitrite Urine NEG (NEG); PH 5.5 (5.0-8.0); Specific Gravity - Urine >= 1.030 (1.005-1.025); Urine Blood NEG (NEG); Urine Ketones 5 MG/DL (NEG); Urine Protein NEG (NEG-TRACE)
[2021-08-31 21:06] LABS: COVID-19 Test Negative (Negative); IDNOW Serial# 9DD0AD1C
[2021-08-31 23:11] LABS: Ethanol 13 mg/dL
[2021-08-31 23:14] LABS: Amphetamine Screen Urine Not Detected (Not Detect); Barbiturates, Urine POSITIVE (Not Detect); Benzodiazepines Screen Urine POSITIVE (Not Detect); Cannabinoid Screen Urine Not Detected (Not Detect); Cocaine Screen Urine Not Detected (Not Detect); Fentanyl, urine POSITIVE (Not Detect); Opiate Screen Urine Not Detected (Not Detect); Phencyclidine Screen Urine Not Detected (Not Detect)
[2021-08-31 23:20] LABS: Alanine Aminotransferase 132 U/L (0-40); Albumin Level 4.1 g/dL (3.5-5.0); Alkaline Phosphatase 87 U/L (39-117); Anion Gap 18 (12-20); Aspartate Amino Transferase 152 U/L (5-37); Bilirubin Direct 0.3 mg/dL (0.0-0.5); Bilirubin Total 0.6 mg/dL (0.0-1.0); Blood Urea Nitrogen 16 mg/dL (9-16); Calcium 8.9 mg/dL (8.4-10.2); Carbon Dioxide 22 mmol/L (22-29); Chloride 105 mmol/L (96-108); Creatinine Clr Calc Pharmacy 123.1; Estimated Glomerular Filt Rate > 60; Glucose Random 133 mg/dL (60-115); Magnesium 1.7 mg/dL (1.6-2.6); Potassium 3.6 mmol/L (3.3-5.1); Sodium 141 mmol/L (135-145); Total Protein 7.1 g/dL (6.5-8.0)
--- NOTE | 2021-09-01 06:02 | PC.NURSE ---
Patient slept through the night, no distress observed/reported, [facility] referral completed /confirmed patient will be evaluated by [facility] in the morning, patient was discharged AMA form [facility] on 08/30/2021, will continue to monitor.
[2021-09-01 06:37] VITALS: BP 110/71; PULSE 86; TEMP 37.1; O2SAT 96
--- NOTE | 2021-09-01 07:38 | PC.NURSE ---
patient appears to remain at rest at present respirations are even and unlabored, patient appears in no distress
== END 2021-09-01 12:55 | disposition home or self-care (01) ==
PROVIDERS: Physician Assistant; Emergency Provider Emergency Medicine
DX: R45.851 Suicidal ideations (principal); F32.A Depression, unspecified; F10.10 Alcohol abuse, uncomplicated; F13.90 Sedative, hypnotic, or anxiolytic use, unspecified, uncomplicated; Z59.02 Unsheltered homelessness; Z20.822 Contact with and (suspected) exposure to COVID-19
CPT/HCPCS: 36415; 80048; 80076; 80307; 81003; 82077; 83735; 85025; 87635; 99283; 99284

== ENCOUNTER 2021-09-02 18:29 | Emergency (ER) | payer MEDICARE, MEDICAID, SELFPAY ==
[2021-09-02 18:41] VITALS: BP 117/81; BP 120/70; PULSE 80; PULSE 93; RESP 16; TEMP 37.3; O2SAT 97; BMI 25.4
--- NOTE | 2021-09-02 19:50 | ED.GENADULT ---
HPI - General Adult General Chief complaint: Extremity Injury, Lower Stated complaint: DIFF AMBULATING D/T PAIN IN FEET,ETOH USE Time Seen by Provider: 09/02/21 18:56 Source: patient and old records reviewed History of Present Illness HPI narrative: Patient complains of bilateral foot pain and swelling. Patient states he has had these issues intermittently in the past for which he has occasionally gone on short courses of Lasix which has helped. Last time was from [facility]. He has recently had issues of depression, alcohol abuse, and vague suicidal ideation. He denies suicidal ideation now. He had a recent hospitalization here [facility]. He denies any recent injuries that would cause foot issues. Recent mild abnormalities with platelets and LFTs but no significant acute issues. Related Data Previous Rx's Medication Instructions Recorded furosemide 20 mg tablet 20 mg PO DAILY #3 tab 09/02/21 Allergies Allergy/AdvReac Type Severity Reaction Status Date / Time No Known Allergies Allergy Verified 08/31/21 20:16 [facility] Social History Social History Household Members: None Housing: Homeless Do you presently have visiting nurse or other home services: No Alcohol intake: current Patient Tobacco Use Status: Current everyday Tobacco user Tobacco use type: Cigarette Cigarette Packs Per Day: 1 Cigarettes Per Day: 20.0 e-Cigarette/Vaping Use: Never Used Advance Directives: No Advance Directives Information Provided: No service: No Sexual orientation: Did not discuss. Physical Exam Vital Signs: Vital Signs: Last Vital Signs Temp 98.8 F 09/02/21 20:30 Pulse 90 09/02/21 20:30 Resp 15 09/02/21 20:30 BP 114/63 09/02/21 20:30 Pulse Ox 94 09/02/21 20:30 Body Mass Index 25.4 Const: Other: Awake alert no acute distress HENMT: Other: ETOH type palate ptosis Resp: Other: Clear and equal without respiratory distress Cardio: Other: Regular rate and rhythm GI: Other: Soft nontender Skin: Other: Warm pink and dry without rash Extrem: Other: Bilateral lower extremity edema. Course Course Course Narrative: 10:29 p.m.. Patient is feeling better now ambulating without difficulty. Will discharge home with final diagnosis of bilateral lymphedema. Short course of Lasix for symptomatic treatment Discharge Plan Discharge Clinical Impression: Lymphedema Patient Disposition: Home, Self-Care Instructions: Lymphedema (ED) Prescriptions: New furosemide 20 mg tablet 20 mg PO DAILY Qty: 3 RF: 0
--- NOTE | 2021-09-02 20:14 | PC.NURSE ---
pt able to respond to question when awoken. pt has been drinking alcohol and sleeping at this. Provider has assess the pt. Will continue to monitor.
[2021-09-02 20:30] VITALS: BP 114/63; PULSE 90; RESP 15; TEMP 37.1; O2SAT 94
[2021-09-02 22:35] VITALS: RESP 20
--- NOTE | 2021-09-02 22:35 | PC.NURSE ---
pt out of bed with a steady gait, no dizziness or lightheadness. pt is able to follow commands at this time . plan is for pt to be discharge.
== END 2021-09-02 22:57 | disposition home or self-care (01) ==
PROVIDERS: Emergency Provider Emergency Medicine
DX: I89.0 Lymphedema, not elsewhere classified (principal); Z79.899 Other long term (current) drug therapy
CPT/HCPCS: 99283; 99284

== ENCOUNTER 2021-09-22 08:16 | Inpatient (IN) | payer MEDICARE, MEDICAID, SELFPAY ==
[2021-09-22] VITALS (7 sets, daily range): BP systolic 146–174; BP diastolic 83–97; PULSE 88–102; RESP 14–18; TEMP 36.4–37; O2SAT 93–95; BMI 27.5
--- NOTE | 2021-09-22 09:10 | ED.PSYCH ---
HPI - Psych General Chief Complaint: Psychiatric Symptoms Stated Complaint: Crisis/SI Time Seen by Provider: 09/22/21 08:17 Source: patient Mode of arrival: ambulatory Limitations: no limitations History of Present Illness HPI Narrative: 56 y/o male presents to the ER with depression and suicidality. He reports he was just evicted from his foreclosed home yesterday by signal engineer department yesterday. He slept outside last night. He no longer wants to live but has no plan to kill himself. He admits to ongoing ETOH use and drinks nips daily but would not quantify amount. Last drink was yesterday and he had a few. Denies other drug use. He is not on medications for depression. MD complaint: suicidal ideation and feels depressed Onset (ago): unknown Duration: constant History of same: Yes Relieving factors: none Exacerbating factors: alcohol Context: recent alcohol abuse Associated psychiatric symptoms: depression and suicidal ideation Associated symptoms: insomnia Treatments prior to arrival: none If self harm: admits thoughts of self harm Related Data Home Medications Medication Instructions Recorded Confirmed No Known Home Meds 09/22/21 09/22/21 Allergies Allergy/AdvReac Type Severity Reaction Status Date / Time No Known Allergies Allergy Verified 08/31/21 20:16 Review of Systems Review of Systems: Constitutional: No Fever, No Chills ENT/Mouth: No sore throat, No Rhinorrhea, No Swallowing Difficulty Cardiovascular: No Chest Pain, No SOB Respiratory: No Cough, No Sputum Gastrointestinal: No Nausea, No Vomiting, No Diarrhea, No abdominal Pain Genitourinary: No Dysuria Musculoskeletal: No joint pain, No Myalgias Skin: No Skin Lesions, No rash Neuro: No Weakness, No Numbness, No Dizziness, + Headache Psych: + Anxiety/Panic, + Depression Heme/Lymph: No Bruising, No Lymphadenopathy PMFSH Social History Social History Household Members: None Housing: Homeless Do you presently have visiting nurse or other home services: No Alcohol intake: current Patient Tobacco Use Status: Current everyday Tobacco user Tobacco use type: Cigarette Cigarette Packs Per Day: 1 Cigarettes Per Day: 20.0 e-Cigarette/Vaping Use: Never Used Advance Directives: No Advance Directives Information Provided: No service: No Sexual orientation: Did not discuss. Physical Exam Vital Signs: Vital Signs: Last Vital Signs Temp 98.1 F 09/22/21 08:22 Pulse 95 09/22/21 08:22 Resp 18 09/22/21 08:22 BP 151/92 H 09/22/21 08:22 Pulse Ox 95 09/22/21 08:22 BMI result Body Mass Index 27.5 Appearance: Alert. Oriented X3. No acute distress. Eyes: Pupils equal, round and reactive to light. ENT: normal external inspection Neck: Normal inspection. Neck supple. CVS: Normal heart rate and rhythm. Pulses normal. Respiratory: No respiratory distress. Breath sounds normal. Abdomen: Soft and nontender. +BS x4 Skin: Skin warm and dry. Normal skin color. Normal skin turgor. No rashes. Extremities: No lower extremity edema. Neuro: Oriented X 3. No motor deficit. No sensory deficit. CN II-XII grossly intact. Course Course Course Narrative: 56 y/o male with history of alcohol abuse and depression presenting with worsening depression and suicidal thoughts in the setting of being evicted from his home yesterday. He was seen in the emergency department several times in August with alcohol intoxication as well as major depressive disorder. Will plan to get labs to medically clear and then have [facility] evaluate him. Reevaluation(s) Reevaluation #1: Lab workup is unremarkable. ETOH 44. Utox negative. Medically cleared at this time. Will monitor for development of alcohol withdrawal today. Will place in physician observation. Physician observation started at 11:05. Patient placed in physician observation because patient is awaiting [facility] evaluation for the possible need of inpatient psych admission. At the time observation was started patient's vital signs were stable. Patient is alert and oriented. Neuro exam is non-focal. CV: RRR and lungs are clear. Will continue to monitor. [facility] - Psych Lab Data Result diagrams: 09/22/21 09:52 09/22/21 09:52 Labs: Lab Results 09/22/21 09/22/21 09/22/21 Range/Units 09:52 09:52 09:52 WBC 4.8 (4.8-10.8) X10*3/uL RBC 3.80 L (4.60-5.80) X10*6/uL Hgb 13.1 L (14.0-18.0) g/dl Hct 38.1 L (42.0-52.0) % MCV 100.3 H (80.0-98.0) fL MCH 34.5 H (27.0-33.0) pg MCHC 34.4 (31.0-36.0) g/dl RDW 14.6 (11.0-16.0) % Plt Count 109 L D (160-400) X10*3/uL MPV 10.8 (9.4-12.4) fL Immature Gran % (Auto) 0.4 (0.0-0.4) % Neut % (Auto) 69.9 (45-73) % Lymph % (Auto) 17.9 L (20-40) % [place] % (Auto) 8.4 (2-11) % Eos % (Auto) 3.2 (0-4) % Baso % (Auto) 0.2 (0-2) % Lymph # (Auto) 0.9 L (1.2-4.9) X10*3/uL [place] # (Auto) 0.4 (0.1-1.2) X10*3/uL Eos # (Auto) 0.2 (0.0-0.4) X10*3/uL Baso # (Auto) 0.0 (0.0-0.2) X10*3/uL Abs Immat Gran (auto) 0.02 (0.00-0.03) X10*3/uL Absolute Neuts (auto) 3.3 (2.0-8.3) x10*3/uL Absolute Nucleated RBC 0.000 (0.0-0.012) X10*3/uL Nucleated RBC % (auto) 0.0 (0.0-0.2) /100WBC Sodium 140 (135-145) mmol/L Potassium 3.7 (3.3-5.1) mmol/L Chloride 105 (96-108) mmol/L Carbon Dioxide 25 (22-29) mmol/L Anion Gap 14 (12-20) BUN 8 L (9-16) mg/dL Creatinine 0.73 (0.5-1.4) mg/dL Estim Creat Clear Calc 131.8 Estimated GFR > 60 Random Glucose 83 D (60-115) mg/dL Calcium 9.2 (8.4-10.2) mg/dL Magnesium 1.7 (1.6-2.6) mg/dL Total Bilirubin 0.5 (0.0-1.0) mg/dL Direct Bilirubin 0.3 (0.0-0.5) mg/dL AST 40 H D (5-37) U/L ALT 30 (0-40) U/L Alkaline Phosphatase 74 (39-117) U/L Total Protein 6.8 (6.5-8.0) g/dL Albumin 3.8 (3.5-5.0) g/dL Urine Opiates Screen (Not Detect) Urine Fentanyl Screen (Not Detect) Ur Barbiturates Screen (Not Detect) Ur Phencyclidine Scrn (Not Detect) Ur Amphetamines Screen (Not Detect) U Benzodiazepines Scrn (Not Detect) Urine Cocaine Screen (Not Detect) U Marijuana (THC) Screen (Not Detect) Ethyl Alcohol mg/dL COVID-19 (MAISHA) Negative (Negative) COVID-19 Clin Com See Note 09/22/21 09/22/21 Range/Units 09:52 10:44 WBC (4.8-10.8) X10*3/uL RBC (4.60-5.80) X10*6/uL Hgb (14.0-18.0) g/dl Hct (42.0-52.0) % MCV (80.0-98.0) fL MCH (27.0-33.0) pg MCHC (31.0-36.0) g/dl RDW (11.0-16.0) % Plt Count (160-400) X10*3/uL MPV (9.4-12.4) fL Immature Gran % (Auto) (0.0-0.4) % Neut % (Auto) (45-73) % Lymph % (Auto) (20-40) % [place] % (Auto) (2-11) % Eos % (Auto) (0-4) % Baso % (Auto) (0-2) % Lymph # (Auto) (1.2-4.9) X10*3/uL [place] # (Auto) (0.1-1.2) X10*3/uL Eos # (Auto) (0.0-0.4) X10*3/uL Baso # (Auto) (0.0-0.2) X10*3/uL Abs Immat Gran (auto) (0.00-0.03) X10*3/uL Absolute Neuts (auto) (2.0-8.3) x10*3/uL Absolute Nucleated RBC (0.0-0.012) X10*3/uL Nucleated RBC % (auto) (0.0-0.2) /100WBC Sodium (135-145) mmol/L Potassium (3.3-5.1) mmol/L Chloride (96-108) mmol/L Carbon Dioxide (22-29) mmol/L Anion Gap (12-20) BUN (9-16) mg/dL Creatinine (0.5-1.4) mg/dL Estim Creat Clear Calc Estimated GFR Random Glucose (60-115) mg/dL Calcium (8.4-10.2) mg/dL Magnesium (1.6-2.6) mg/dL Total Bilirubin (0.0-1.0) mg/dL Direct Bilirubin (0.0-0.5) mg/dL AST (5-37) U/L ALT (0-40) U/L Alkaline Phosphatase (39-117) U/L Total Protein (6.5-8.0) g/dL Albumin (3.5-5.0) g/dL Urine Opiates Screen Not Detected (Not Detect) Urine Fentanyl Screen Not Detected (Not Detect) Ur Barbiturates Screen Not Detected (Not Detect) Ur Phencyclidine Scrn Not Detected (Not Detect) Ur Amphetamines Screen Not Detected (Not Detect) U Benzodiazepines Scrn Not Detected (Not Detect) Urine Cocaine Screen Not Detected (Not Detect) U Marijuana (THC) Screen Not Detected (Not Detect) Ethyl Alcohol 44 mg/dL COVID-19 (MAISHA) (Negative) COVID-19 Clin Com Discharge Plan Discharge Clinical Impression: Depression, Alcohol abuse Prescriptions: No Action No Known Home Meds RF: 0
[2021-09-22 09:57] LABS: MANUAL DIFF FLAG NO
[2021-09-22 10:00] LABS: Basophils Percent Auto 0.2 % (0-2); Eosinophils Absolute Auto 0.2 X10*3/uL (0.0-0.4); Eosinophils Percent Auto 3.2 % (0-4); Hematocrit 38.1 % (42.0-52.0); Hemoglobin 13.1 g/dl (14.0-18.0); Imm Gran Abs Auto 0.02 X10*3/uL (0.00-0.03); Imm Gran Pct Auto 0.4 % (0.0-0.4); Lymphocytes Absolute Auto 0.9 X10*3/uL (1.2-4.9); Lymphocytes Percent Auto 17.9 % (20-40); Mean Corpuscular HGB Conc 34.4 g/dl (31.0-36.0); Mean Corpuscular Hemoglobin 34.5 pg (27.0-33.0); Mean Corpuscular Volume 100.3 fL (80.0-98.0); Mean Platelet Volume 10.8 fL (9.4-12.4); Monocytes Absolute Auto 0.4 X10*3/uL (0.1-1.2); Monocytes Percent Auto 8.4 % (2-11); Neutrophils Absolute Auto 3.3 x10*3/uL (2.0-8.3); Neutrophils Percent Auto 69.9 % (45-73); Platelet Count 109 X10*3/uL (160-400); Red Cell Distribution Width 14.6 % (11.0-16.0); White Blood Count 4.8 X10*3/uL (4.8-10.8)
--- NOTE | 2021-09-22 10:09 | PHA.MEDREC ---
Pharmacy Consult ? Medication Reconciliation Pharmacy has completed the medication reconciliation. Patient reports taking clonazepam PRN, ambien PRN and furosemide.No history in PDMP. Called [facility] and patient also never picked up furosemide RX at pharmacy.
--- NOTE | 2021-09-22 10:10 | PC.NURSE ---
belongings in locker 10
[2021-09-22 10:14] LABS: COVID-19 Test Negative (Negative); Ethanol 44 mg/dL; IDNOW Serial# 9DD0AD1C
[2021-09-22 10:18] LABS: Alanine Aminotransferase 30 U/L (0-40); Albumin Level 3.8 g/dL (3.5-5.0); Alkaline Phosphatase 74 U/L (39-117); Anion Gap 14 (12-20); Aspartate Amino Transferase 40 U/L (5-37); Bilirubin Direct 0.3 mg/dL (0.0-0.5); Bilirubin Total 0.5 mg/dL (0.0-1.0); Blood Urea Nitrogen 8 mg/dL (9-16); Calcium 9.2 mg/dL (8.4-10.2); Carbon Dioxide 25 mmol/L (22-29); Chloride 105 mmol/L (96-108); Creatinine Clr Calc Pharmacy 131.8; Estimated Glomerular Filt Rate > 60; Glucose Random 83 mg/dL (60-115); Magnesium 1.7 mg/dL (1.6-2.6); Potassium 3.7 mmol/L (3.3-5.1); Sodium 140 mmol/L (135-145); Total Protein 6.8 g/dL (6.5-8.0)
[2021-09-22 11:03] LABS: Amphetamine Screen Urine Not Detected (Not Detect); Barbiturates, Urine Not Detected (Not Detect); Benzodiazepines Screen Urine Not Detected (Not Detect); Cannabinoid Screen Urine Not Detected (Not Detect); Cocaine Screen Urine Not Detected (Not Detect); Fentanyl, urine Not Detected (Not Detect); Opiate Screen Urine Not Detected (Not Detect); Phencyclidine Screen Urine Not Detected (Not Detect)
--- NOTE | 2021-09-22 11:28 | MHC.CARE ---
1127 - SMART Sheet submitted to N
--- NOTE | 2021-09-22 13:24 | PC.NURSE ---
calm and cooperative, pleasant, moved to the pod and currently being interviewed by ZACKERY, steady gait, speech clear
[2021-09-22] MEDS: LORazepam 1 MG TABLET 2 MG PO ×2 (14:26→17:27)
--- NOTE | 2021-09-22 22:23 | PC.NURSE ---
Nurse to nurse completed with Mando VERGARA on M5.
--- NOTE | 2021-09-22 22:24 | PC.NURSE ---
PT woken up to sign CV, obtain vitals, and assess CIWA score. PT was difficult to awaken and very drowsy while awake. PT able to ambulate to the bathroom on his own. PT is waiting to be transferred to .
[2021-09-22] MEDS: Thiamine HCL 100 MG TABLET PO (23:02)
[2021-09-22] MEDS: LORazepam 1 MG TABLET PO (23:02)
[2021-09-23] VITALS (8 sets, daily range): BP systolic 142–159; BP diastolic 67–99; PULSE 74–100; RESP 16–18; TEMP 36.8–37.2; O2SAT 93–97
--- NOTE | 2021-09-23 05:33 | PC.ADMIT ---
Patient was admitted to -5 from [facility] ED at Change of Shift 11pm. It was noted by accepting RN, patient was in alcohol withdrawal. Patient is noted to have coarse tremors, light sweat, slurred speech, and confusion. Covering Provider, Sandrita was contacted; Ativan and Thiamin ordered and administered. Patient is well known to [facility] through numerous assessments for inpatient Psychiatric and Detox stays. According to Records: Patient is assessed by [facility] due to worsening depression and suicidal ideation without plan or intent. Patient was most recently found eligible for IPLOC on 08/29/21 but left AMA after one day. During the assessment, Pt was observed with slurred speech and impaired affect in thought process. Patient reports increased feelings of not wanting to live anymore. He states he wants to be back on his medications and connected to outpatient providers. Patient has diagnosis of F31.2 Bipolar I disorder with psychotic features as well as F10.20 Moderate alcohol use disorder. Patient's home was recently foreclosed on and field talent qualification specialist removed him from the home. Patient reports he hasn't seen his in 24 months or his dog in 18 months. Records indicate patient has multiple pending legal charges as well as past arrests for drunk and disorderly, disturbing the peace, violating restraining order, and resisting arrest. Patient had a BAL of 44 on 09/22/21. Patient has PMH of Hypertension, subclinical hypothroidism, and Peripheral neuropathy. Patient is a one pack a day smoker with intermittent cough. Patient is noted to be incontinent of stool during overnight hours and is currently utilizing an incontinence brief. Patient safety checks ordered q15min.
--- NOTE | 2021-09-23 05:49 | PC.NURSE ---
Patient's vital signs are assessed at 2:40am. BP is 157/94, with HR 92. Patient is offered Ativan 1 mg, but he refuses stating I can barely walk, I will take something in the morning.
[2021-09-23 07:18] LABS: Cholesterol 145 mg/dL; HDL Cholesterol 83 mg/dL; LDL Cholesterol Calculated 50 mg/dl; Magnesium 1.7 mg/dL (1.6-2.6); Triglycerides 60 mg/dL
[2021-09-23 07:36] LABS: Thyroid Stimulating Hormone 0.54 uIU/mL (0.32-4.0)
[2021-09-23] MEDS: Thiamine HCL 100 MG TABLET PO (08:16)
[2021-09-23] MEDS: Folic Acid 1 MG TABLET PO (08:16)
[2021-09-23] MEDS: LORazepam 1 MG TABLET PO ×5 (08:16→21:39)
--- NOTE | 2021-09-23 11:19 | HO.PSYADMNOT ---
HPI Date of Service: 09/23/21 Chief Complaint: Crisis Sources of Information: patient interviewed, chart reviewed and crisis/core team assessment reviewed HPI Subjective Notes: Lee Warning and Conditional Voluntary Narrative: 56 WM came to ED stating he was suicidal. He was evicted 2 days ago by the farmworker rice as his home was foreclosed. from his . Pt has had X visits to [facility] with SI/ sonu / etoh related visits. Per Crisis : he has X charges related to drink and disorderly/violating restraining order/resisting arrest. Today, pt states he is depressed and appears to be in significant ETOH WD. He is not on any medications. Pt was irritable and walked out of interview when questioned about treating ETOH WD You cannot give me 2 mg and make ma a zombie . Past Psychiatric History: Unclear Hx of depression Vs bipolar. Past notes mention sonu. No current meds or providers. X stays at [facility] Therapist is/was Tristian Comer in [address] Medical Evaluation Reviewed: Yes [facility] Narrative: HTN HypoThyroidism Neuropathy ETOH related hepatitis Family History: Bipolar in various sibs Sis : completed suicide Social History: Single, 2013, no children, on SSDI. Close to his brother Kenneth Substance History: ETOH : from age 19. Heavy use. Past Hx cocaine use. Not now Diagnostics Vital Signs (24Hr): Vital Signs - 24 hr 09/22/21 12:59 09/22/21 14:11 09/22/21 16:00 Temperature 98.6 F 97.5 F Pulse Rate 88 96 Respiratory Rate 14 18 18 Blood Pressure 146/85 H 158/95 H Pulse Oximetry 95 93 09/22/21 17:21 09/22/21 19:33 09/22/21 22:27 Temperature 97.5 F Pulse Rate 100 102 H 88 Respiratory Rate 16 17 14 Blood Pressure 174/92 H 163/97 H 160/83 H Pulse Oximetry 94 95 94 09/23/21 00:49 09/23/21 02:40 09/23/21 06:00 Temperature 98.9 F 98.4 F Pulse Rate 88 92 84 Respiratory Rate 18 18 Blood Pressure 142/68 H 157/94 H 147/75 H Pulse Oximetry 93 96 96 09/23/21 10:52 Temperature Pulse Rate 92 Respiratory Rate Blood Pressure 152/78 H Pulse Oximetry BMI result Body Mass Index 27.5 Labs Results: 09/22/21 09:52 09/22/21 09:52 Labs: Laboratory Results - last 48 hr 09/22/21 09/22/21 09/22/21 09:52 09:52 09:52 WBC 4.8 RBC 3.80 L Hgb 13.1 L Hct 38.1 L MCV 100.3 H MCH 34.5 H MCHC 34.4 RDW 14.6 Plt Count 109 L D MPV 10.8 Immature Gran % (Auto) 0.4 Neut % (Auto) 69.9 Lymph % (Auto) 17.9 L [place] % (Auto) 8.4 Eos % (Auto) 3.2 Baso % (Auto) 0.2 Lymph # (Auto) 0.9 L [place] # (Auto) 0.4 Eos # (Auto) 0.2 Baso # (Auto) 0.0 Abs Immat Gran (auto) 0.02 Absolute Neuts (auto) 3.3 Absolute Nucleated RBC 0.000 Nucleated RBC % (auto) 0.0 Sodium 140 Potassium 3.7 Chloride 105 Carbon Dioxide 25 Anion Gap 14 BUN 8 L Creatinine 0.73 Estim Creat Clear Calc 131.8 Estimated GFR > 60 Random Glucose 83 D Calcium 9.2 Magnesium 1.7 Total Bilirubin 0.5 Direct Bilirubin 0.3 AST 40 H D ALT 30 Alkaline Phosphatase 74 Total Protein 6.8 Albumin 3.8 Triglycerides Cholesterol LDL Cholesterol, Calc HDL Cholesterol TSH Urine Opiates Screen Urine Fentanyl Screen Ur Barbiturates Screen Ur Phencyclidine Scrn Ur Amphetamines Screen U Benzodiazepines Scrn Urine Cocaine Screen U Marijuana (THC) Screen Ethyl Alcohol COVID-19 (MAISHA) Negative COVID-19 Clin Com See Note 09/22/21 09/22/21 09/23/21 09:52 10:44 06:36 WBC RBC Hgb Hct MCV MCH MCHC RDW Plt Count MPV Immature Gran % (Auto) Neut % (Auto) Lymph % (Auto) [place] % (Auto) Eos % (Auto) Baso % (Auto) Lymph # (Auto) [place] # (Auto) Eos # (Auto) Baso # (Auto) Abs Immat Gran (auto) Absolute Neuts (auto) Absolute Nucleated RBC Nucleated RBC % (auto) Sodium Potassium Chloride Carbon Dioxide Anion Gap BUN Creatinine Estim Creat Clear Calc Estimated GFR Random Glucose Calcium Magnesium 1.7 Total Bilirubin Direct Bilirubin AST ALT Alkaline Phosphatase Total Protein Albumin Triglycerides 60 Cholesterol 145 LDL Cholesterol, Calc 50 HDL Cholesterol 83 TSH 0.54 Urine Opiates Screen Not Detected Urine Fentanyl Screen Not Detected Ur Barbiturates Screen Not Detected Ur Phencyclidine Scrn Not Detected Ur Amphetamines Screen Not Detected U Benzodiazepines Scrn Not Detected Urine Cocaine Screen Not Detected U Marijuana (THC) Screen Not Detected Ethyl Alcohol 44 COVID-19 (MAISHA) COVID-19 Clin Com Meds/Allergies Meds Home Medications Acetaminophen (Acetaminophen 325 Mg Tablet) 650 mg PO Q6H PRN PRN Reason: Headache/Pain Mild Scale (1-3) Al Hydroxide/Mg Hydroxide (Magnesium Hydrox/Alum Hydrox 30 Ml Oral.Susp) 30 ml PO Q6H PRN PRN Reason: Heartburn/Nausea Folic Acid (Folic Acid 1 Mg Tablet) 1 mg PO DAILY [facility] Last Admin: 09/23/21 08:16 Dose: 1 mg Documented by: Gabapentin (Gabapentin 100 Mg Capsule) 100 mg PO TID [facility] Last Admin: 09/23/21 14:42 Dose: Not Given Documented by: Hydroxyzine HCl (Hydroxyzine Hcl 25 Mg Tablet) 25 mg PO Q6H PRN PRN Reason: Anxiety Lorazepam (Lorazepam 1 Mg Tablet) 1 mg PO TID [facility] Last Admin: 09/23/21 14:38 Dose: 1 mg Documented by: Lorazepam (Lorazepam 1 Mg Tablet) 1 mg PO Q4H PRN PRN Reason: Alcohol Withdrawal/SBP>150 Last Admin: 09/23/21 12:49 Dose: 1 mg Documented by: Magnesium Hydroxide (Milk Of Magnesia 30 Ml Oral.Susp) 30 ml PO DAILY PRN PRN Reason: Constipation Nicotine Polacrilex (Nicotine Polacrilex 2 Mg Gum) 2 mg BUCCAL Q2H PRN PRN Reason: Nicotine Cravings Pharmacy Consult (Consult Rx Perform Med Rec) 1 each MISCELLANE ONCE PRN PRN Reason: Consult order Thiamine HCl (Thiamine Hcl 100 Mg Tablet) 100 mg PO DAILY [facility] Last Admin: 09/23/21 08:16 Dose: 100 mg Documented by: Trazodone HCl (Trazodone Hcl 50 Mg Tablet) 50 mg PO BEDTIME PRN PRN Reason: Insomnia Allergies Allergies Allergy/AdvReac Type Severity Reaction Status Date / Time No Known Allergies Allergy Verified 08/31/21 20:16 Mental Status Exam Mental Status Exam Patient Appearance: Unkempt Patient Behavior: Uncooperative Behavior Comments: WD tremors Affect Description: Nervous Speech Pattern: Slurred Hallucinations: None Depressive Symptoms: Increased Fatigue Abnormal Motor Activity Signs and Symptoms: Agitation, Restlessness and Tremors Judgement: Poor Assessment & Plan Assessment & Plan (1) Depression: Status: Acute Qualifiers: Active/Remission status: currently active Depression Type: major depressive disorder Major depression episode severity: unspecified Major depression recurrence: recurrent Qualified Code(s): F33.9 - Major depressive disorder, recurrent, unspecified Code(s): F32.A - Depression, unspecified (2) Alcohol abuse: Status: Acute Code(s): F10.10 - Alcohol abuse, uncomplicated Assessment and Plan: 1. cv/q15 2. ETOH WD protocol . refuses higher dose of Lorazepam. Triple vitamins 3. Defer psych meds till diagnostic clarity. r/o bipolar Vs Unipolar 4. Add Neurontin to decrease Sz risk. 5. Collateral Patient educated on: diagnosis Informed Consent: understands Reason for continued inpatient stay Substantial Risk for: harm to self and med/psych decompensation
[2021-09-23] MEDS: Magnesium Hydrox/Alum Hydrox 30 ML ORAL.SUSP PO (17:09)
[2021-09-23] MEDS: Multivitamin TABLET 1 TAB PO (20:10)
[2021-09-23] MEDS: Gabapentin 100 MG CAPSULE PO (20:10)
[2021-09-24] VITALS: BP 138/73; PULSE 79; RESP 18; TEMP 36.8; O2SAT 95
[2021-09-24] MEDS: LORazepam 1 MG TABLET PO ×5 (02:17→19:59)
--- NOTE | 2021-09-24 02:19 | PC.NURSE ---
Pt's BP was 138/73, which falls short of the 150 min under protocol for his prn Ativan. Pt was requesting Klonopin. Dr Jesse pascaled to give pt Ativan 1 mg
[2021-09-24 06:56] LABS: Estimated Average Glucose 91 mg/dL; Hemoglobin A1c % 4.8 %
[2021-09-24 07:23] VITALS: BP 150/100; PULSE 86; RESP 18; TEMP 36.9; O2SAT 100
[2021-09-24 09:14] LABS: Folate 7.2 ng/mL (> or = 4.0); Vitamin B12 331 pg/mL (200-900)
[2021-09-24] MEDS: Gabapentin 100 MG CAPSULE PO ×2 (09:29→19:59)
[2021-09-24] MEDS: Folic Acid 1 MG TABLET PO (09:29)
[2021-09-24] MEDS: Thiamine HCL 100 MG TABLET PO (09:29)
--- NOTE | 2021-09-24 10:14 | HO.PSYCHPN ---
Subjective Subjective Date of Service: 09/24/21 Reason For Visit: Crisis Interim History: Patient says that he is doing fine and would like discharge. He denies that he ever said he was suicidal. He said that he was cold and tired and had no place to stay so he came to the emergency room. Here he reports said that he has no desire to live anymore however he said this is very different from feeling suicidal which he denies any thoughts of self-harm, plans or intention. Patient said that his desire to live was challenged as his house was foreclosed on at his belongings locked up inside rendering him homeless. But he reiterates that he had no thoughts of killing himself or harming himself. Patient said he wants to discharge and will look for a place to live on his own. He plans to go to a group home in the meantime and does not want to stay on the unit to receive help with this. Patient also says that he is not in alcohol withdrawal. He said he had a few nips to help him with his neuropathy but denies chronic daily drinking to any excess. Patient does not want medication management. He just asks if he can go. He reluctantly agrees to remain the night in order to demonstrate continued stability. Patient refuses to sign a 3 day notice. Mental Status Exam Mental Status Exam Narrative: Pt is alert and oriented; behavior is cooperative, friendly and calm; patient is not in distress; dressed in casual attire with unkempt hair but adequate hygiene; mood is described as good and affect congruent; eye contact appropriate; Speech is normal rate, volume and prosody and not pressured; no psychomotor agitation/retardation present; thought process is organized and goal directed; Thought content is on tx; otherwise pertinent to relevant topics and without any delusional content, paranoid ideations or grandiosity; denies any SI/HI. There is no evidence of perceptual disturbance. Patients insight and judgment appear intact. Diagnostics Vital Signs (24Hr): Vital Signs - 24 hr 09/23/21 10:52 09/23/21 13:30 09/23/21 17:03 Temperature 98.3 F Pulse Rate 92 79 74 Respiratory Rate 18 Blood Pressure 152/78 H 146/67 H 144/75 H Pulse Oximetry 97 09/23/21 20:00 09/23/21 21:39 09/24/21 00:00 Temperature 98.2 F Pulse Rate 100 79 Respiratory Rate 16 18 Blood Pressure 159/99 H 138/73 Pulse Oximetry 95 09/24/21 07:23 Temperature 98.5 F Pulse Rate 86 Respiratory Rate 18 Blood Pressure 150/100 H Pulse Oximetry 100 BMI result Body Mass Index 27.5 Labs Results: 09/22/21 09:52 09/22/21 09:52 Labs: Laboratory Results - last 48 hr 09/22/21 09/22/21 09/22/21 09:52 09:52 09:52 Sodium 140 Potassium 3.7 Chloride 105 Carbon Dioxide 25 Anion Gap 14 BUN 8 L Creatinine 0.73 Estim Creat Clear Calc 131.8 Estimated GFR > 60 Random Glucose 83 D Estimat Average Glucose Hemoglobin A1c % Calcium 9.2 Magnesium 1.7 Total Bilirubin 0.5 Direct Bilirubin 0.3 AST 40 H D ALT 30 Alkaline Phosphatase 74 Total Protein 6.8 Albumin 3.8 Triglycerides Cholesterol LDL Cholesterol, Calc HDL Cholesterol Vitamin B12 Folate TSH Urine Opiates Screen Urine Fentanyl Screen Ur Barbiturates Screen Ur Phencyclidine Scrn Ur Amphetamines Screen U Benzodiazepines Scrn Urine Cocaine Screen U Marijuana (THC) Screen Ethyl Alcohol 44 COVID-19 (MAISHA) Negative COVID-[employer] See Note 09/22/21 09/23/21 09/23/21 10:44 06:36 06:36 Sodium Potassium Chloride Carbon Dioxide Anion Gap BUN Creatinine Estim Creat Clear Calc Estimated GFR Random Glucose Estimat Average Glucose 91 Hemoglobin A1c % 4.8 Calcium Magnesium 1.7 Total Bilirubin Direct Bilirubin AST ALT Alkaline Phosphatase Total Protein Albumin Triglycerides 60 Cholesterol 145 LDL Cholesterol, Calc 50 HDL Cholesterol 83 Vitamin B12 Folate TSH 0.54 Urine Opiates Screen Not Detected Urine Fentanyl Screen Not Detected Ur Barbiturates Screen Not Detected Ur Phencyclidine Scrn Not Detected Ur Amphetamines Screen Not Detected U Benzodiazepines Scrn Not Detected Urine Cocaine Screen Not Detected U Marijuana (THC) Screen Not Detected Ethyl Alcohol COVID-19 (MAISHA) COVID-[employer] 09/23/21 06:36 Sodium Potassium Chloride Carbon Dioxide Anion Gap BUN Creatinine Estim Creat Clear Calc Estimated GFR Random Glucose Estimat Average Glucose Hemoglobin A1c % Calcium Magnesium Total Bilirubin Direct Bilirubin AST ALT Alkaline Phosphatase Total Protein Albumin Triglycerides Cholesterol LDL Cholesterol, Calc HDL Cholesterol Vitamin B12 331 Folate 7.2 TSH Urine Opiates Screen Urine Fentanyl Screen Ur Barbiturates Screen Ur Phencyclidine Scrn Ur Amphetamines Screen U Benzodiazepines Scrn Urine Cocaine Screen U Marijuana (THC) Screen Ethyl Alcohol COVID-19 (MAISHA) COVID-19 Clin Com Medications Medications Current Medications Acetaminophen (Acetaminophen 325 Mg Tablet) 650 mg PO Q6H PRN PRN Reason: Headache/Pain Mild Scale (1-3) Al Hydroxide/Mg Hydroxide (Magnesium Hydrox/Alum Hydrox 30 Ml Oral.Susp) 30 ml PO Q6H PRN PRN Reason: Heartburn/Nausea Last Admin: 09/23/21 17:09 Dose: 30 ml Documented by: Folic Acid (Folic Acid 1 Mg Tablet) 1 mg PO DAILY [facility] Last Admin: 09/24/21 09:29 Dose: 1 mg Documented by: Gabapentin (Gabapentin 100 Mg Capsule) 100 mg PO TID [facility] Last Admin: 09/24/21 09:29 Dose: 100 mg Documented by: Hydroxyzine HCl (Hydroxyzine Hcl 25 Mg Tablet) 25 mg PO Q6H PRN PRN Reason: Anxiety Lorazepam (Lorazepam 1 Mg Tablet) 1 mg PO TID [facility] Last Admin: 09/24/21 09:29 Dose: 1 mg Documented by: Lorazepam (Lorazepam 1 Mg Tablet) 1 mg PO Q4H PRN PRN Reason: Alcohol Withdrawal/SBP>150 Last Admin: 09/24/21 02:17 Dose: 1 mg Documented by: Magnesium Hydroxide (Milk Of Magnesia 30 Ml Oral.Susp) 30 ml PO DAILY PRN PRN Reason: Constipation Multivitamins/Vitamin C (Multivitamin Tablet) 1 tab PO BEDTIME [facility] Last Admin: 09/23/21 20:10 Dose: 1 tab Documented by: Nicotine Polacrilex (Nicotine Polacrilex 2 Mg Gum) 2 mg BUCCAL Q2H PRN PRN Reason: Nicotine Cravings Thiamine HCl (Thiamine Hcl 100 Mg Tablet) 100 mg PO DAILY [facility] Last Admin: 09/24/21 09:29 Dose: 100 mg Documented by: Trazodone HCl (Trazodone Hcl 50 Mg Tablet) 50 mg PO BEDTIME PRN PRN Reason: Insomnia Allergies Allergies Allergy/AdvReac Type Severity Reaction Status Date / Time No Known Allergies Allergy Verified 08/31/21 20:16 Assessment & Plan Assessment & Plan (1) Depression: Qualifiers: Active/Remission status: currently active Depression Type: major depressive disorder Major depression episode severity: unspecified Major depression recurrence: recurrent Qualified Code(s): F33.9 - Major depressive disorder, recurrent, unspecified Status: Acute Code(s): F32.A - Depression, unspecified (2) Alcohol abuse: Status: Acute Code(s): F10.10 - Alcohol abuse, uncomplicated Assessment and Plan: Impression: Patient is a 56-year-old male with history of mood disorder, alcohol abuse and History of multiple inpatient admissions. He currently denies any SI or urge to self-harm and says that he safe and wants discharge. He said he came to the ED only because he was tired and cold having been locked out of his house which is now for closed on. He also denies any alcoholism saying he is not abuse alcohol but does takes a few naps at night to help with neuropathy (though elevated lft's, low platelets, and elevated MCV indicate otherwise). He does not want gabapentin. Patient asks for discharge. Although he was irritable on admission he has remained in overall good behavioral and impulse control on his consistently said he is not suicidal. He does not want help finding a place to live saying I do not want to be shipped off anywhere... I want to see the places myself... He would like to be discharged to a group home where he will look for a place to live on his own. If patient remains stable will discharge as he requests. Patient does not appear to be in imminent risk of harm to self or others. 1. cv/q15 2. ETOH WD protocol . refuses higher dose of Lorazepam. Triple vitamins 3. pt does not want med management 4. Add Neurontin to decrease Sz risk. I spent minutes with the patient and/or on the patient floor today, greater than?50% of which was spent counseling/coordinating care. Reason for contiued inpatient stay Substantial Risk for: stable for discharge
[2021-09-24 12:00] VITALS: BP 133/62; PULSE 94; RESP 16
[2021-09-24 16:00] VITALS: BP 179/80; PULSE 87
[2021-09-24] MEDS: Multivitamin TABLET 1 TAB PO (19:59)
[2021-09-25 06:04] VITALS: BP 145/98; PULSE 83; RESP 18; TEMP 36.6; O2SAT 95
--- NOTE | 2021-09-25 06:30 | PC.NURSE ---
Patient awakens agitated at 2:30am and then again at 4am demanding to know how soon he can be discharged. Staff explain discharge process to patient, who has a difficult time hearing about it and continues to be agitated. Patient's vitals signs are assessed and found to be 163/104 automated and 145/98 manually; Patient is offered PRN medication for anxiety and agitation, but patient refuses medications. He is educated on the dangers of high blood pressure. Patient's room and bed are noted to be untidy and unhygienic; stool is smeared on bed sheets, blankets, and towels as well as on pieces of toilet paper throughout the roommate. Stool is noted on patient's hands as well. Patient's room is cleaned with new linen change. Patient is showered. Patient returns to kitchen to watch news with peers.
[2021-09-25 08:00] VITALS: BP 145/98; PULSE 83; TEMP 36.6; O2SAT 95
[2021-09-25] MEDS: Folic Acid 1 MG TABLET PO (08:15)
[2021-09-25] MEDS: Thiamine HCL 100 MG TABLET PO (08:15)
[2021-09-25] MEDS: LORazepam 1 MG TABLET PO (08:15)
[2021-09-25] MEDS: Gabapentin 100 MG CAPSULE PO (08:16)
--- NOTE | 2021-09-25 09:33 | PM.PSYDC ---
DS: Providers Provider Date of Service: 09/25/21 Date of admission: 09/22/21 22:49 Date of discharge: 09/25/21 Primary care physician: Kiran Ho MD Attending physician on admission: Mikey Molina Attending physician on discharge: Fan Lucas DS: Diagnosis Discharge Diagnosis (1) Adjustment disorder with disturbance of emotion: Status: Acute (2) Alcohol abuse: Status: Acute (3) Depression: Status: Acute DS: Medications Discharge Medications Home Medications: Home Medications Medication Instructions Recorded Confirmed No Known Home Meds 09/22/21 09/22/21 Mental Status Exam Mental Status Exam Narrative: Pt is alert and oriented; behavior is cooperative, friendly and calm; patient is not in distress; dressed in casual attire with unkempt hair but adequate hygiene; mood is described as good and affect congruent; eye contact appropriate; Speech is normal rate, volume and prosody and not pressured; no psychomotor agitation/retardation present; thought process is organized and goal directed; Thought content is on tx; otherwise pertinent to relevant topics and without any delusional content, paranoid ideations or grandiosity; denies any SI/HI. There is no evidence of perceptual disturbance. ?Patients insight and judgment appear intact. Data Data Completed and Pending Completed studies during hospitalization [Text1]: 09/22/21 09/22/21 09/22/21 09:52 09:52 09:52 WBC 4.8 RBC 3.80 L Hgb 13.1 L Hct 38.1 L MCV 100.3 H MCH 34.5 H MCHC 34.4 RDW 14.6 Plt Count 109 L D MPV 10.8 Immature Gran % (Auto) 0.4 Neut % (Auto) 69.9 Lymph % (Auto) 17.9 L Ritchie % (Auto) 8.4 Eos % (Auto) 3.2 Baso % (Auto) 0.2 Lymph # (Auto) 0.9 L Ritchie # (Auto) 0.4 Eos # (Auto) 0.2 Baso # (Auto) 0.0 Abs Immat Gran (auto) 0.02 Absolute Neuts (auto) 3.3 Absolute Nucleated RBC 0.000 Nucleated RBC % (auto) 0.0 Sodium 140 Potassium 3.7 Chloride 105 Carbon Dioxide 25 Anion Gap 14 BUN 8 L Creatinine 0.73 Estim Creat Clear Calc 131.8 Estimated GFR > 60 Random Glucose 83 D Estimat Average Glucose Hemoglobin A1c % Calcium 9.2 Magnesium 1.7 Total Bilirubin 0.5 Direct Bilirubin 0.3 AST 40 H D ALT 30 Alkaline Phosphatase 74 Total Protein 6.8 Albumin 3.8 Triglycerides Cholesterol LDL Cholesterol, Calc HDL Cholesterol Vitamin B12 Folate TSH Urine Opiates Screen Urine Fentanyl Screen Ur Barbiturates Screen Ur Phencyclidine Scrn Ur Amphetamines Screen U Benzodiazepines Scrn Urine Cocaine Screen U Marijuana (THC) Screen Ethyl Alcohol COVID-19 (MAISHA) Negative COVID-19 [facility] Com See Note 09/22/21 09/22/21 09/23/21 09:52 10:44 06:36 WBC RBC Hgb Hct MCV MCH MCHC RDW Plt Count MPV Immature Gran % (Auto) Neut % (Auto) Lymph % (Auto) Ritchie % (Auto) Eos % (Auto) Baso % (Auto) Lymph # (Auto) Ritchie # (Auto) Eos # (Auto) Baso # (Auto) Abs Immat Gran (auto) Absolute Neuts (auto) Absolute Nucleated RBC Nucleated RBC % (auto) Sodium Potassium Chloride Carbon Dioxide Anion Gap BUN Creatinine Estim Creat Clear Calc Estimated GFR Random Glucose Estimat Average Glucose 91 Hemoglobin A1c % 4.8 Calcium Magnesium Total Bilirubin Direct Bilirubin AST ALT Alkaline Phosphatase Total Protein Albumin Triglycerides Cholesterol LDL Cholesterol, Calc HDL Cholesterol Vitamin B12 Folate TSH Urine Opiates Screen Not Detected Urine Fentanyl Screen Not Detected Ur Barbiturates Screen Not Detected Ur Phencyclidine Scrn Not Detected Ur Amphetamines Screen Not Detected U Benzodiazepines Scrn Not Detected Urine Cocaine Screen Not Detected U Marijuana (THC) Screen Not Detected Ethyl Alcohol 44 COVID-19 (MAISHA) COVID-19 [facility] Com 09/23/21 09/23/21 06:36 06:36 WBC RBC Hgb Hct MCV MCH MCHC RDW Plt Count MPV Immature Gran % (Auto) Neut % (Auto) Lymph % (Auto) Ritchie % (Auto) Eos % (Auto) Baso % (Auto) Lymph # (Auto) Ritchie # (Auto) Eos # (Auto) Baso # (Auto) Abs Immat Gran (auto) Absolute Neuts (auto) Absolute Nucleated RBC Nucleated RBC % (auto) Sodium Potassium Chloride Carbon Dioxide Anion Gap BUN Creatinine Estim Creat Clear Calc Estimated GFR Random Glucose Estimat Average Glucose Hemoglobin A1c % Calcium Magnesium 1.7 Total Bilirubin Direct Bilirubin AST ALT Alkaline Phosphatase Total Protein Albumin Triglycerides 60 Cholesterol 145 LDL Cholesterol, Calc 50 HDL Cholesterol 83 Vitamin B12 331 Folate 7.2 TSH 0.54 Urine Opiates Screen Urine Fentanyl Screen Ur Barbiturates Screen Ur Phencyclidine Scrn Ur Amphetamines Screen U Benzodiazepines Scrn Urine Cocaine Screen U Marijuana (THC) Screen Ethyl Alcohol COVID-19 (MAISHA) COVID-19 Clin Com DS: Summary Hospital Course Hospital Course: Patient is a 56-year-old male with history of mood disorder, alcohol abuse and History of multiple inpatient admissions.? He currently denies any SI or urge to self-harm and says that he safe and wants discharge.? He said he came to the ED only because he was tired and cold and had no place to stay, having been locked out of his house which is now in forclosure. He also denies any alcoholism saying he is not abuse alcohol but does takes a few naps at night to help with neuropathy. On the unit, he was treated for alcohol withdrawal but CIWA scores was mild (CIWA on 09/24/21 was 8, 0, 4, 1) and he denied feeling any etoh withdrawal symptoms. Patient that he is doing fine and would like discharge.? He denies that he ever said he was suicidal.? He explains that in the ED he did say something krissy to having no desire to live anymore however he says this is very different from feeling suicidal and reiterates that he has no thoughts of self-harm, plans or intention. He maintains that he was never actually suicidal but just needed a place to stay for the night. Patient said he wants to discharge and will look for a place to live on his own.? He plans to first go to a snf while looking for a place and does not want to stay on the unit to receive help with this saying I do not want to be shipped off anywhere... I want to see the places myself... ? Patient does not want medication management.? He just asks if he can go but does not want to sign a 3 day notice. Horticultural Farmer strongly encouraged patient to remain for help however Patient remained adamant that he does not want help with services and that he will follow up on his own with his primary care doctor. Horticultural Farmer discussed patient's comorbidities. Patient knows that he has high blood pressure and chronic neuropathy but again says he will follow up with his PCP. Overnight, patient was incontinent but on inquiry he explained my just could not make it in time. Although patient irritable on admission he has remained in overall good behavioral and impulse control and has consistently been with organized behavior and linear, logical and organized speech. No manic symptoms observed. He has not exhibited any unsafe behavior on the unit and consistently denies SI/HI, or AVH. Patient has long history of mood lability, chronic alcohol abuse and multiple inpatient admissions and it is likely that he will again become decompensated at some point, find himself in harms way,, relapse with substance abuse or develop unsafe behaviors. However, regarding this admission, patient admits to malingering in order to get a place to stay. Horticultural Farmer cannot testify that he is in imminent risk for harm to self or others or that he cannot take care of himself in the community. Patient does not rise to the level of involuntary commitment and his request for discharge honored. Time spent discussing smoking cessation with patient: 3 to 10 minutes Status at Discharge Functional status at discharge: independent ambulation Overall status at discharge: patient is back to baseline Time Spent with Patient Time attestation: Total time spent providing and/or coordinating discharge services: Time spent: Greater than 30 minutes Discharge Plan Discharge Patient Disposition: Residential Discharge Diagnosis: adjustment disorder with disturbance of emotion; in full remission Referrals: [facility] [Other] - 1 Week (PLEASE CONTACT FOR A WALK IN APPOINTMENT) Discharge Medications: No Action doxycycline hyclate 100 mg capsule 100 mg PO BID 10 Days Qty: 20 RF: 0 Discharge Orders: Discharge Order (Routine); Ordered 09/25/21 Ordered By: Fan Lucas Diet: regular diet Activity on Discharge: As tolerated Stand Alone Forms: Patient Portal Discharge page, Community Support Care Plan Goals: Maintain mood and safe behaviors Follow up with your outpatient provider Continue to pursue sobriety Practice coping skills Health Concerns: Mood stability and behaviors Sobriety Neuropathy Hypertension Plan of Treatment: Follow up with your PCP, psychiatric provider and other outpatient providers regarding above concerns Assessment: Risk assessment at time of discharge:? Patient was interviewed prior to discharge and found to be fully oriented and without any SI or HI. Patient is not in imminent risk of harm to self or others and has a safety plan that includes presenting to the closest ER or calling 911 if feeling unsafe which he has demonstrated his ability and willingness to do.? Patient has been observed closely by nursing and unit staff throughout admission; although irritable, he has not engaged in any behaviors that suggest dangerousness to self or others. Discharge Date/Time: 09/25/21 11:30
--- NOTE | 2021-09-25 09:58 | PC.NURSE ---
pt offered and refused the flu vaccine.
== END 2021-09-25 11:30 | disposition home or self-care (01) | DRG 882 ==
LOC: HO.ED 13:19 → HO.PM5 22:57
PROVIDERS: Admitting Provider Social Worker; Emergency Provider Emergency Medicine; PCP Internal Medicine; Visit Provider Psychiatry & Neurology Psychiatry
DX: F43.29 Adjustment disorder with other symptoms (principal); R45.851 Suicidal ideations; F32.A Depression, unspecified; F17.210 Nicotine dependence, cigarettes, uncomplicated; Z71.6 Tobacco abuse counseling; Z20.822 Contact with and (suspected) exposure to COVID-19; F10.10 Alcohol abuse, uncomplicated; Z59.02 Unsheltered homelessness
CPT/HCPCS: 36415; 80048; 80061; 80076; 80307; 82077; 82607; 82746; 83036; 83735; 84443; 85025; 87635; 99285

== ENCOUNTER 2021-09-28 09:42 | Emergency (ER) | payer MEDICARE, MEDICAID, SELFPAY ==
--- NOTE | 2021-09-28 09:45 | ED.ALCOHOL ---
HPI - Alcohol General Stated Complaint: etoh Time Seen by Provider: 09/28/21 09:45 Source: patient Mode of arrival: EMS Limitations: no limitations History of Present Illness HPI narrative: no SI/HI, does not want to be here, does not want rehab complaint: alcohol dependence Last drink: Hours (ago) Chronic alcohol use: Yes Previous visits for alcohol intoxication: Yes Recent trauma: No Associated symptoms: denies other symptoms Treatments prior to arrival: none Related Data Home Medications Medication Instructions Recorded Confirmed No Known Home Meds 09/22/21 09/22/21 Allergies Allergy/AdvReac Type Severity Reaction Status Date / Time No Known Allergies Allergy Verified 08/31/21 20:16 Review of Systems Review of Systems: Constitutional : No Weight loss, No Fever, No Chills, No Fatigue, No Malaise ENT/Mouth : No sore throat, No Rhinorrhea Eyes: No Eye Pain, No Swelling, No Redness Cardiovascular : No Chest Pain, No SOB, No Dyspnea on Exertion, No Orthopnea, No Edema, No Palpitations Respiratory : No Cough, No Sputum, No Wheezing Gastrointestinal : No Nausea, No Vomiting, No Diarrhea, No Constipation, No abdominal Pain, No Hematochezia, No Melena Genitourinary : No Dysuria, No Urinary Frequency, No Hematuria, Musculoskeletal : No joint pain, No Myalgias, No Joint Swelling Skin : No Skin Lesions, No rash Neuro : No Weakness, No Numbness, No Dizziness, No Headache Psych : No Anxiety/Panic, No Depression Heme/Lymph: No Bruising, No Bleeding,No Lymphadenopathy Endocrine : No Polyuria, No Polydipsia All other systems reviewed and are negative PMFSH Past Medical History Medical History Adjustment disorder with disturbance of emotion Social History Social History Household Members: None Housing: Homeless Do you presently have visiting nurse or other home services: No Alcohol intake: current Patient Tobacco Use Status: Current everyday Tobacco user Tobacco use type: Cigarette Cigarette Packs Per Day: 1 Cigarettes Per Day: 20.0 e-Cigarette/Vaping Use: Never Used Second Hand Smoke Exposure: Yes service: No Sexual orientation: Straight/Heterosexual Physical Exam Vital Signs: Appearance: Alert. Oriented X3. No acute distress. Steady gait Eyes: Pupils equal, round and reactive to light. ENT: Pharynx normal. Atraumatic Neck: Normal inspection. Neck supple. CVS: Pulses normal. Respiratory: No respiratory distress. Abdomen: atraumatic Skin: Skin warm and dry. Normal skin color. Extremities: No lower extremity edema. Neuro: Oriented X 3. No motor deficit. No sensory deficit. MDM - Alcohol MDM Narrative Medical decision making narrative: 56 yo male drinking today - GCS 15, steady gait, no SI, refusing all care in the ED wants to go to his brothers house does not want detox, yelling at the RNs states he is leaving - he is clinically sober knows where he is states he was told to come here or go to [facility]. At this time he is not sectionable stable for DC steady gait Discharge Plan Discharge Clinical Impression: Alcohol abuse Patient Disposition: Elopement Instructions: Abuse of Alcohol (ED) Prescriptions: No Action No Known Home Meds RF: 0 Interventions: ED Discharge Assessment Last Done: 09/28/21 09:56
== END 2021-09-28 10:01 | disposition left against medical advice (07) ==
LOC: HO.ED 09:58
PROVIDERS: Emergency Provider Emergency Medicine; PCP Internal Medicine
DX: F10.20 Alcohol dependence, uncomplicated (principal); R40.2410 Glasgow coma scale score 13-15, unspecified time; F17.210 Nicotine dependence, cigarettes, uncomplicated; Z71.6 Tobacco abuse counseling

== ENCOUNTER 2021-09-28 10:37 | Emergency (ER) | payer MEDICARE, MEDICAID, SELFPAY ==
--- NOTE | ~2021-09-28 | CT_ITS ---
EXAMINATION: CT FACIAL BONES WITHOUT CONTRAST CLINICAL INFORMATION: Fall. Laceration. COMPARISON: None TECHNIQUE: Obtained on the technologist workstation. Axial images through the facial bones without contrast. Sagittal and coronal reconstructions This CT examination was performed using dose optimization techniques as appropriate, variously including the following: *Automated exposure control *Adjustment of mA and/or kV according to patient size (this includes techniques or standardized protocols for targeted exams where dose is matched to indication/reason for exam; i.e. extremities or head) *Use of iterative reconstruction technique DLP: 364 mGy-cm FINDINGS: There are bilateral nasal bone fractures that appear recent, right greater than left. No other fracture location is seen. There is a cystic lesion in the upper midline maxilla near the nasal spine measuring 7 mm. There is soft tissue swelling over the right orbit and right frontal bone suggestive of hematoma. Post orbital soft tissues are normal. There are small polyps or cysts in the right maxillary sinus. Paranasal sinuses, mastoid air cells and middle ears are clear. The patient has no teeth. There is unusual orientation or position of the tongue. Clinical correlation recommended. There is diffuse shotty cervical lymphadenopathy. The temporomandibular joints are normal. CT/CT facial bones wo con IMPRESSION: Bilateral nasal bone fractures, right greater than left. No other fracture. Preseptal soft tissue swelling over the right orbit and frontal bone. 7 mm nonspecific cystic lesion in the midline maxilla near the nasal spine. Unusual position or orientation of the tongue. Clinical correlation recommended.
--- NOTE | ~2021-09-28 | CT_ITS ---
EXAMINATION: CT HEAD WITHOUT CONTRAST CLINICAL INFORMATION: Pain. Fall. COMPARISON: Previous brain MRI June 2008 TECHNIQUE: Contiguous axial imaging was performed from the skull base to vertex without intravenous administration of contrast. This CT examination was performed using dose optimization techniques as appropriate, variously including the following: *Automated exposure control *Adjustment of mA and/or kV according to patient size (this includes techniques or standardized protocols for targeted exams where dose is matched to indication/reason for exam; i.e. extremities or head) *Use of iterative reconstruction technique DLP: 785 mGy-cm FINDINGS: There is no evidence of acute intracranial hemorrhage or territorial infarction. No abnormal mass effect or midline shift is seen. [place] to white matter differentiation is well preserved. No extra-axial fluid collections are identified. The ventricles and extra-axial CSF spaces are slightly prominent suggestive of mild generalized atrophy. There is no abnormal attenuation within the brain parenchyma. The osseous structures are normal. There is high attenuation soft tissue swelling over the right frontal bone and superior orbit suggestive of hematoma. There is mild membranous soft tissue thickening in the right maxillary sinus.. The mastoid air cells and visualized portions of the paranasal sinuses are otherwise clear. CT/CT head/brain wo con IMPRESSION: No acute intracranial findings. High attenuation soft tissue swelling over the right frontal bone and orbit suggestive of soft tissue hematoma.
--- NOTE | ~2021-09-28 | CT_ITS ---
EXAMINATION: CT CERVICAL SPINE WITHOUT CONTRAST CLINICAL INFORMATION: Pain. Fall. COMPARISON: None TECHNIQUE: Axial images through the cervical spine without contrast. Sagittal and coronal reconstructions on the technologist workstation were performed. This CT examination was performed using dose optimization techniques as appropriate, variously including the following: *Automated exposure control *Adjustment of mA and/or kV according to patient size (this includes techniques or standardized protocols for targeted exams where dose is matched to indication/reason for exam; i.e. extremities or head) *Use of iterative reconstruction technique DLP: 616 mGy-cm FINDINGS: Bone alignment is normal. No fracture or dislocation is seen. There is mild degenerative spondylosis and degenerative disc disease at C4-C5 C5-C6 and C6-C7. There are degenerative changes of C1 dens articulation. There is question of a cystic lesion in the dens that measures 1 cm. Prevertebral soft tissues are normal. There is shotty cervical lymphadenopathy. There is evidence of emphysema at the lung apices. There is a question of focal pleural thickening adjacent to the posterior lateral right upper lobe. CT/CT cervical spine wo con IMPRESSION: Degenerative changes. No fracture or dislocation seen. Question 1 cm cystic lesion in the dens. Emphysema. Question pleural thickening. Fleischner guidelines were followed.
--- NOTE | 2021-09-28 11:15 | ED.ALCOHOL ---
HPI - Alcohol General Chief Complaint: ETOH/Substance Use Stated Complaint: etoh Time Seen by Provider: 09/28/21 11:13 Source: patient Mode of arrival: EMS Limitations: other (Intoxicated) History of Present Illness HPI narrative: This is a 56-year-old male past medical history significant for adjustment disorder, depression and alcohol abuse with current intoxication presenting to the emergency department status post trip and fall onto his face. Patient was just recently discharged from the emergency department, where he was seen for alcohol intoxication, patient was telling staff that he wanted to leave, and did not want to be here, patient was discharge. He is unable to answer questions, he is not cooperative. He keeps saying patch me up so I can go EMS found him down the street from [facility], by a park, he had an abrasion over the right eye, and blood all over his face. Patient is unable to answer questions pertaining to review of systems. He tells me that he is not on blood thinners, he does not take any medications. MD complaint: alcohol intoxication Chronic alcohol use: Yes Previous visits for alcohol intoxication: Yes Recent trauma: Yes Associated symptoms: denies other symptoms Treatments prior to arrival: none Related Data Previous Rx's Medication Instructions Recorded doxycycline hyclate 100 mg capsule 100 mg PO BID 10 Days #20 cap 09/28/21 Allergies Allergy/AdvReac Type Severity Reaction Status Date / Time No Known Allergies Allergy Verified 08/31/21 20:16 Review of Systems Review of Systems: Unable to obtain, patient is intoxicated not cooperating. Yes all other systems are reviewed and are negative PMFSH Past Medical History Attestation statement: The following information was validated with the patient. Source: old records reviewed and nursing notes reviewed Medical History Adjustment disorder with disturbance of emotion Social History Social History Household Members: None Housing: Homeless Do you presently have visiting nurse or other home services: No Alcohol intake: current Patient Tobacco Use Status: Current everyday Tobacco user Tobacco use type: Cigarette Cigarette Packs Per Day: 1 Cigarettes Per Day: 20.0 e-Cigarette/Vaping Use: Never Used Second Hand Smoke Exposure: Yes Advance Directives: No Advance Directives Information Provided: No service: No Sexual orientation: Straight/Heterosexual Physical Exam Vital Signs: Vital Signs: Last Vital Signs Temp 98.2 F 09/28/21 11:17 Pulse 107 H 09/28/21 11:17 Resp 18 09/28/21 11:17 BP 149/82 H 09/28/21 11:17 Pulse Ox 98 09/28/21 11:17 BMI result Body Mass Index 26.9 HTN and tachycardia likely secondary to alcohol use and intoxication Appearance: Alert.? Oriented X3.? No acute distress.? Head: Normocephalic, atraumatic, no step-offs or deformities Eyes: Pupils equal, round and reactive to light.? ENT: Pharynx normal.? Neck: Normal inspection.? Neck supple.? CVS: Normal heart rate and rhythm.? Pulses normal.? Respiratory: No respiratory distress.? Breath sounds normal.? Abdomen: Soft and nontender.? Skin: Skin warm and dry.? Normal skin color.? Normal skin turgor.?+ linear laceration about 2 cm overlying the right eyebrow. There is also dry blood scattered throughout patient's face. + small abrasion on the nose Extremities: No lower extremity edema.? No calf ttp. 5/5 strength to bilateral upper and lower extremities Back: No midline tenderness, no C-spine tenderness, full range of motion, no CVA tenderness bilaterally Neuro: Oriented X 3.? No motor deficit.? No sensory deficit. Course Reevaluation(s) Reevaluation #1: Patient is refusing sutures although I feel as though they are necessary. He tells me aden are okay. He is screaming at staff telling us your all going to hell I am the patient I make the decision . Security at the bedside, patient agitated. At this time patient is at CT scan. I will speak to the patient again telling him I believe sutures are better than aden. However, the patient agrees to aden I will put in aden over his right eyebrow. Time: 11:35 Reevaluation #2: I was able to successfully suture patient's laceration over the right eyebrow using 5 0 non-disolvable sutures, patient tolerated procedure well. Two sutures were placed. Dermabond was also applied to the area. CTs pending patient requesting to leave . I explained to the patient that he cannot leave yet as I have to rule out a fracture, or internal hemorrhage, patient says he does not care. Time: 11:59 Reevaluation #3: Patient eloped. Time: 12:14 MDM - Alcohol MDM Narrative Medical decision making narrative: [id number] YO M pmhx adjustment disorder, depression alcohol abuse with acute intoxication presents to ED s/p trip and fall with aprasions and a laceration to the face. Patient is intoxicated and not answering questions appropriately, not cooperative with staff. Unknown tetatanous status Upon physical examination there is a 2 cm linear laceration overlying the right eyebrow, currently bleeding. There is also dried blood scattered throughout the face. No step-offs or deformities. Plan at this time is to obtain a head, neck and facial bone CT. As patient is an alcoholic and high risk for intracranial hemorrhage. Medical Records Attestation: I reviewed the patient's medical records. Lab Data Attestation: I reviewed the patient's lab results. Procedures Laceration Laceration 1: Site: other (eyebrow ) Side (If applicable): right Size (cm): 2 Description: linear Depth: simple, single layer Local Anesthetic: lidocaine 2% Amount of anesthesia used (mL): 5 Pre-repair: wound explored, irrigated extensively and deep structures intact Skin layer closed with: vicryl Size (cm): 5-0 Number of sutures: 2 Technique: simple, interrupted Critical Care Time Critical Care Time Critical Care Time: No Discharge Plan Discharge Clinical Impression: Alcohol abuse, Alcoholic intoxication, Fall, Laceration of eyebrow, right Patient Disposition: Elopement Instructions: Care For Your Stitches (ED), Laceration (ED), Fall Prevention for Older Adults (ED), Alcohol Intoxication (ED), Abuse of Alcohol (ED), Fall Prevention (ED), Facial Laceration (ED) Additional Instructions: Take your medications as prescribed. If you were prescribed antibiotics today, it is important that you take your medication to their entirety, do not skip any doses, do not finish them early. Return to emergency department in 7 days for suture removal. Follow-up with your primary care provider this week. Return to the emergency department with new or worsening symptoms. Or any signs of infection such as fevers, chills, nausea, vomiting, redness or swelling to the area, discharge from the area. In case of emergency call 911 Prescriptions: New doxycycline hyclate 100 mg capsule 100 mg PO BID 10 Days Qty: 20 RF: 0 Referrals: Kiran Ho MD [Primary Care Provider] - 2 days
[2021-09-28 11:17] VITALS: BP 149/82; PULSE 107; RESP 18; TEMP 36.8; O2SAT 98; BMI 26.9
== END 2021-09-28 12:41 | disposition left against medical advice (07) ==
PROVIDERS: Emergency Provider Emergency Medicine; PCP Internal Medicine
DX: S00.211A Abrasion of right eyelid and periocular area, initial encounter (principal); F10.129 Alcohol abuse with intoxication, unspecified; H57.11 Ocular pain, right eye; M54.2 Cervicalgia; G44.309 Post-traumatic headache, unspecified, not intractable; Y90.9 Presence of alcohol in blood, level not specified; W01.0XXA Fall on same level from slipping, tripping and stumbling without subsequent striking against object, initial encounter; Y93.9 Activity, unspecified; Y92.9 Unspecified place or not applicable; Y99.9 Unspecified external cause status
CPT/HCPCS: 12011; 70450; 70486; 72125; 90471; 99283; 99284